=== PATIENT | female | born 1955 | race Hispanic/Latino ===

== ENCOUNTER 2017-01-05 12:14 | Emergency (ER) | payer MEDICAID, MEDICARE ==
[2017-01-05 12:15] VITALS: BMI 28.8
[2017-01-05 12:28] VITALS: BP 103/80; PULSE 81; RESP 18; TEMP 97.8; O2SAT 99
--- NOTE | 2017-01-05 13:42 | C.PDOC ---
History Of Present Illness 61 y/o female, with past medical history that includes HTN, chronic back pain, and depression, presents to ED with c/o increasing back pain over the last few days which radiates down the right leg. Patient reports she fell down 3 steps yesterday. She denies head injury, new weakness, new numbness, nausea, vomiting , dizziness. Patient reports frequent prior falls and regularly ambulates with a cane. She notes that she takes Percocet 10mg regularly, but states she has not taken any for this current pain because they make her nervous. She notes she applied ice to her back after the fall. Patient also mentions that she does have her regular pain medications at home. Denies any other physical complaints at this time. Time Seen by Provider: 01/05/17 13:10 Chief Complaint (Nursing): Dizziness/Lightheaded History Per: Patient History/Exam Limitations: no limitations Onset/Duration Of Symptoms: Days Current Symptoms Are (Timing): Still Present Quality Of Discomfort: "Pain" Previous Symptoms: Back Pain, Chronic Pain Associated Symptoms: denies: Incontinence, New Weakness, New Numbness Recent travel outside of the [place]: No Past Medical History Reviewed: Historical Data, Nursing Documentation, Vital Signs Vital Signs: Last Vital Signs Temp 97.8 F 01/05/17 12:24 Pulse 81 01/05/17 12:24 Resp 18 01/05/17 12:24 BP 103/80 01/05/17 12:24 Pulse Ox 99 01/05/17 13:48 - Medical History PMH: Anxiety, Arthritis, Asthma, Back Problems, CAD, COPD, Depression, HTN, Hypercholesterolemia, Hypothyroidism, Osteoporosis, TIA Surgical History: Carotid Endarterectomy - [facility] Procedures ANGIOPLASTY OF OTHER NON-CORONARY VESSEL(S) (02/21/14) CONTRAST AORTOGRAM (02/21/14) CONTRAST ARTERIOGRAM-LEG (02/21/14) FLUOROSCOPY OF L LOW EXTREM ART USING L OSM CONTRAST (01/11/15) FLUOROSCOPY OF R LOW EXTREM ART USING L OSM CONTRAST (01/11/15) INJECT/INFUSE NEC (12/24/13) INSEJ [id number] PERIPHERAL NON-CORONARY VES STENT(S) (02/21/14) INSERTION OF ONE VASCULAR STENT (02/21/14) INTRODUCTION OF SERUM/TOX/VACCINE INTO MUSCLE, PERC APPROACH (01/06/15) PROCEDURE ON SINGLE VESSEL (02/21/14) Family History: States: Unknown Family Hx - Social History Hx Tobacco Use: Yes Hx Alcohol Use: No Hx Substance Use: No - Immunization History Hx Tetanus Toxoid Vaccination: No Hx Influenza Vaccination: Yes Hx Pneumococcal Vaccination: No Review Of Systems Except As Marked, All Systems Reviewed And Found Negative. Constitutional: Negative for: Fever, Chills Cardiovascular: Negative for: Chest Pain Respiratory: Negative for: Cough, Shortness of Breath, Wheezing Gastrointestinal: Negative for: Nausea, Vomiting, Abdominal Pain Musculoskeletal: Positive for: Back Pain, Leg Pain. Negative for: Neck Pain Neurological: Negative for: Weakness, Numbness, Headache, Dizziness Physical Exam - Physical Exam Appears: Non-toxic, No Acute Distress Skin: Normal Color, Warm, Dry Head: Atraumatic, Normacephalic Neck: Normal ROM, No Midline Cervical Tenderness, No Paracervical Tenderness, Supple Chest: Symmetrical Cardiovascular: Rhythm Regular Respiratory: Normal Breath Sounds, No Rales, No Rhonchi, No Wheezing Gastrointestinal/Abdominal: Soft, No Tenderness, No Guarding, No Rebound Back: Normal Inspection, No Vertebral Tenderness, No Paraspinal Tenderness Extremity: Normal ROM, Capillary Refill (< 2 sec.) Neurological/Psych: Oriented x3, Normal Speech, Normal Cognition ED Course And Treatment O2 Sat by Pulse Oximetry: 99 (RA) Pulse Ox Interpretation: Normal Medical Decision Making Medical Decision Making: Plan: * Motrin * Tylenol * Reassess Progress Notes: On reassessment, patient is resting comfortably, and is in no acute distress. Patient instructed to take her regular pain medications as directed and to follow up with PMD within 1-2 days. Disposition Counseled Patient/Family Regarding: Diagnosis, Need For Followup - Disposition Disposition: HOME/ ROUTINE Disposition Time: 13:47 Condition: STABLE Instructions: Back Pain (ED) Forms: [facility] (Khmer), General Discharge Instructions - POA Present On Arrival: None - Clinical Impression Clinical Impression: Low back pain - Scribe Statement The provider has reviewed the documentation as recorded by the Scribcaity Thurston All medical record entries made by the Scribe were at my direction and personally dictated by me. I have reviewed the chart and agree that the record accurately reflects my personal performance of the history, physical exam, medical decision making, and the department course for this patient. I have also personally directed, reviewed, and agree with the discharge instructions and disposition.
== END 2017-01-05 14:02 | disposition home or self-care (01) ==
LOC: C.ER 12:14
DX: M54.5 Low back pain (principal)

== ENCOUNTER 2017-01-10 19:49 | Inpatient (IN) | payer MEDICARE ==
[2017-01-10 20:37] VITALS: BMI 27.4
[2017-01-10] MEDS ORDERED: Sodium Chloride 0.9% 1,000 ML IV ONE ×3 (20:37→23:15)
[2017-01-10 21:07] LABS: BASO # 0.1 K/uL (0.0-0.2); BASO % 0.4 % (0.0-2.0); EOS # 0.1 K/uL (0.0-0.7); HEMATOCRIT 32.4 % (34.0-47.0); LYMPH # 2.2 K/uL (1.0-4.3); LYMPH % 18.3 % (20.0-40.0); MEAN CELL VOLUME 90.1 fL (81.0-99.0); MEAN CORPUSCULAR HEMOGLOBIN 29.4 pg (27.0-31.0); MEAN CORPUSCULAR HGB CONC 32.6 g/dL (33.0-37.0); MEAN PLATELET VOLUME 10.4 fL (7.2-11.7); MONO # 1.9 K/uL (0.0-0.8); MONO % 15.9 % (0.0-10.0); RED CELL DISTRIBUTION WIDTH 15.8 % (11.5-14.5); WHITE BLOOD COUNT 11.9 K/uL (4.8-10.8)
[2017-01-10 21:25] LABS: CHLORIDE 101 mmol/L (98-107)
[2017-01-10 21:26] LABS: POTASSIUM 3.3 mmol/L (3.6-5.2); SODIUM 133 mmol/L (132-148)
[2017-01-10 21:28] LABS: BILIRUBIN,TOTAL 0.6 mg/dL (0.2-1.3); CARBON DIOXIDE 20 mmol/L (22-30); GFR AFRICAN-AMERICAN 15
[2017-01-10 21:29] LABS: ALB/GLOB RATIO 1.1 (1.0-2.1); ALKALINE PHOSPHATASE 54 U/L (38-126); ALT/SGPT 28 U/L (9-52); AST/SGOT 27 U/L (14-36); BLOOD UREA NITROGEN 32 mg/dL (7-17); CALCIUM 8.4 mg/dl (8.6-10.4); GLUCOSE,RANDOM 110 mg/dL (65-105); TOTAL PROTEIN 6.6 g/dL (6.3-8.3)
[2017-01-10 21:30] LABS: ALCOHOL SERUM < 10 mg/dl (0-10)
[2017-01-10] MEDS ORDERED: Piperacillin/Tazobact 3.375 gm 100 ML IV STA (22:12)
[2017-01-10] MEDS ORDERED: Vancomycin 1 GM 1 GM/250 ML BAG IV STA (22:12)
[2017-01-10] MEDS ORDERED: Vancomycin 1 GM 1 GM/250 ML BAG IVPB ONE (22:31)
[2017-01-10] MEDS ORDERED: Piperacillin/Tazobact 3.375 gm 100 ML IVPB ONE (22:31)
[2017-01-10 22:51] LABS: RBC URINE 4 /hpf (0-3); URINE BACTERIA FEW (<OCC); URINE BILIRUBIN NEGATIVE (NEGATIVE); URINE BLOOD NEGATIVE (NEGATIVE); URINE COLOR Amber (YELLOW); URINE GLUCOSE (UA) NORMAL (Normal); URINE KETONE NEGATIVE (NEGATIVE); URINE LEUKOCYTE ESTERASE 2+ Leu/uL (Negative); URINE PROTEIN 1+ mg/dL (NEGATIVE); WBC URINE 35 /hpf (0-5)
--- NOTE | 2017-01-10 23:21 | CP.CCUPN ---
CCU Subjective - Physician Review Events Since Last Encounter (Free Text): 01/10/17 The patient was Seen/interviewed and examined by me at the bedside, Medical records reviewed and Management issues were discussed and formulated with the house staff. 61 Y/O F with PMHx of HTN, HLD, COPD, CAD, Anxiety, Arthritis, Asthma, Back Problems, Depression, Hypothyroidism, Osteoporosis and TIA Who presented to the ER with not eating or drinking for 3 days SOB, in the ER she initially hypotension, responded to IV volume resuscitations Pt noted to be hallucinating in the ER, Urine tox positive for Benzo. Patient started on Broad spectrum antibiotics and getting admitted to ICU for severe sepsis sec to possible B/L pneumonia and acute kidney injury No fever/chills/CP, MCLEAN/cough No abd pain no n/v/d CCU Objective - Vital Signs / Intake & Output Vital Signs (Last 4 hours): Vital Signs Temp Pulse Resp BP Pulse Ox 01/10/17 22:45 90 16 106/80 98 01/10/17 20:30 97.9 F 98 H 18 62/38 L 91 L Intake and Output (Last 8hrs): Intake & Output 01/10/17 01/10/17 01/11/17 14:59 22:59 06:59 Weight 170 lb - Physical Exam Physical Exam Limitations: Positive for: Altered Mental Status, Clinical Condition Head: Positive for: Atraumatic, Normocephalic Pupils: Positive for: PERRL. Negative for: Sluggish, Non-Reactive Extroacular Muscles: Positive for: EOMI Conjunctiva: Positive for: Normal. Negative for: Injected, Icteric Ears: Positive for: Normal Mouth: Positive for: Dry Neck: Positive for: Normal Range of Motion, Trachea Midline. Negative for: Meningeal Signs, MIDLINE TENDERNESS, Paraspinal Tenderness, JVD, Lymphadenopathy , Bruit, Other Respiratory/Chest: Positive for: Good Air Exchange, Decreased Breath Sounds, Rhonchi. Negative for: Respiratory Distress, Accessory Muscle Use, Wheezes, Rales Cardiovascular: Positive for: Regular Rate and Rhythm, Normal S1, S2, Peripheal Pulses Present. Negative for: Murmurs Upper Extremity: Positive for: Normal Inspection. Negative for: Cyanosis, Edema Lower Extremity: Positive for: Normal Inspection. Negative for: Edema, CALF TENDERNESS Neurological: Positive for: GCS=15, CN II-XII Intact, Speech Normal, Motor Func Grossly Intact Skin: Positive for: Warm, Dry Psychiatric: Positive for: Alert, Oriented x 3 - Medications Active Medications: Active Medications Generic Name Dose Route Start Last Admin Trade Name Joan PRN Reason Stop Dose Admin Vancomycin HCl 1 gm in 250 mls @ 166.667 mls/hr 01/10/17 22:12 01/10/17 23:10 Vancomycin 1gm In Normal Saline Addvantage IV 01/10/17 23:41 166.667 mls/hr STAT STA Administration Sodium Chloride 1,000 mls @ 1,000 mls/hr 01/10/17 23:15 01/10/17 23:20 Sodium Chloride 0.9% IV 01/11/17 00:14 1,000 mls/hr .Q1H ONE Administration - Patient Studies Lab Studies: Lab Studies 01/10/17 01/10/17 01/10/17 Range/Units 21:02 21:02 21:02 WBC 11.9 H (4.8-10.8) K/uL RBC 3.60 L (3.80-5.20) Mil/uL Hgb 10.6 L (11.0-16.0) g/dL Hct 32.4 L (34.0-47.0) % MCV 90.1 D (81.0-99.0) fL MCH 29.4 (27.0-31.0) pg MCHC 32.6 L (33.0-37.0) g/dL RDW 15.8 H (11.5-14.5) % Plt Count 208 (130-400) K/uL MPV 10.4 (7.2-11.7) fL Neut % (Auto) 64.4 (50.0-75.0) % Lymph % (Auto) 18.3 L (20.0-40.0) % Millard % (Auto) 15.9 H (0.0-10.0) % Eos % (Auto) 1.0 (0.0-4.0) % Baso % (Auto) 0.4 (0.0-2.0) % Neut # 7.7 H (1.8-7.0) K/uL Lymph # 2.2 (1.0-4.3) K/uL Millard # 1.9 H (0.0-0.8) K/uL Eos # 0.1 (0.0-0.7) K/uL Baso # 0.1 (0.0-0.2) K/uL PT 10.9 (9.7-12.2) SECONDS INR 1.0 APTT 29 (21-34) SECONDS Sodium 133 (132-148) mmol/L Potassium 3.3 L (3.6-5.2) mmol/L Chloride 101 (98-107) mmol/L Carbon Dioxide 20 L (22-30) mmol/L Anion Gap 15 (10-20) BUN 32 H (7-17) mg/dL Creatinine 3.7 H (0.7-1.2) mg/dL Est GFR ( Amer) 15 Est GFR (Non-Af Amer) 12 Random Glucose 110 H (65-105) mg/dL Calcium 8.4 L (8.6-10.4) mg/dl Total Bilirubin 0.6 (0.2-1.3) mg/dL AST 27 (14-36) U/L ALT 28 (9-52) U/L Alkaline Phosphatase 54 (38-126) U/L Troponin I 0.0190 (0.00-0.120) ng/mL NT-Pro-B Natriuret Pep 292 (0-900) pg/mL Total Protein 6.6 (6.3-8.3) g/dL Albumin 3.4 L (3.5-5.0) g/dL Globulin 3.2 (2.2-3.9) gm/dL Albumin/Globulin Ratio 1.1 (1.0-2.1) Urine Color (YELLOW) Urine Clarity (Clear) Urine pH (5.0-8.0) Ur Specific York (1.003-1.030) Urine Protein (NEGATIVE) mg/dL Urine Glucose (UA) (Normal) mg/dL Urine Ketones (NEGATIVE) mg/dL Urine Blood (NEGATIVE) Urine Nitrate (NEGATIVE) Urine Bilirubin (NEGATIVE) Urine Urobilinogen (0.2-1.0) mg/dL Ur Leukocyte Esterase (Negative) Paz/uL Urine WBC (Auto) (0-5) /hpf Urine RBC (Auto) (0-3) /hpf Ur Squamous Epith Cells (0-5) /hpf Urine Bacteria (<OCC) Urine Opiates Screen (NEGATIVE) Urine Methadone Screen (NEGATIVE) Ur Barbiturates Screen (NEGATIVE) Ur Phencyclidine Scrn (NEGATIVE) Ur Amphetamines Screen (NEGATIVE) U Benzodiazepines Scrn (NEGATIVE) U Oth Cocaine Metabols (NEGATIVE) U Cannabinoids Screen (NEGATIVE) Alcohol, Quantitative < 10 (0-10) mg/dl 01/10/17 01/10/17 Range/Units 10:08 10:08 WBC (4.8-10.8) K/uL RBC (3.80-5.20) Mil/uL Hgb (11.0-16.0) g/dL Hct (34.0-47.0) % MCV (81.0-99.0) fL MCH (27.0-31.0) pg MCHC (33.0-37.0) g/dL RDW (11.5-14.5) % Plt Count (130-400) K/uL MPV (7.2-11.7) fL Neut % (Auto) (50.0-75.0) % Lymph % (Auto) (20.0-40.0) % Millard % (Auto) (0.0-10.0) % Eos % (Auto) (0.0-4.0) % Baso % (Auto) (0.0-2.0) % Neut # (1.8-7.0) K/uL Lymph # (1.0-4.3) K/uL Millard # (0.0-0.8) K/uL Eos # (0.0-0.7) K/uL Baso # (0.0-0.2) K/uL PT (9.7-12.2) SECONDS INR APTT (21-34) SECONDS Sodium (132-148) mmol/L Potassium (3.6-5.2) mmol/L Chloride (98-107) mmol/L Carbon Dioxide (22-30) mmol/L Anion Gap (10-20) BUN (7-17) mg/dL Creatinine (0.7-1.2) mg/dL Est GFR ( Amer) Est GFR (Non-Af Amer) Random Glucose (65-105) mg/dL Calcium (8.6-10.4) mg/dl Total Bilirubin (0.2-1.3) mg/dL AST (14-36) U/L ALT (9-52) U/L Alkaline Phosphatase (38-126) U/L Troponin I (0.00-0.120) ng/mL NT-Pro-B Natriuret Pep (0-900) pg/mL Total Protein (6.3-8.3) g/dL Albumin (3.5-5.0) g/dL Globulin (2.2-3.9) gm/dL Albumin/Globulin Ratio (1.0-2.1) Urine Color Anu (YELLOW) Urine Clarity Hazy (Clear) Urine pH 5.0 (5.0-8.0) Ur Specific York 1.017 (1.003-1.030) Urine Protein 1+ H (NEGATIVE) mg/dL Urine Glucose (UA) Normal (Normal) mg/dL Urine Ketones Negative (NEGATIVE) mg/dL Urine Blood Negative (NEGATIVE) Urine Nitrate Negative (NEGATIVE) Urine Bilirubin Negative (NEGATIVE) Urine Urobilinogen 2.0 H (0.2-1.0) mg/dL Ur Leukocyte Esterase 2+ H (Negative) Paz/uL Urine WBC (Auto) 35 H (0-5) /hpf Urine RBC (Auto) 4 H (0-3) /hpf Ur Squamous Epith Cells 2 (0-5) /hpf Urine Bacteria Few H (<OCC) Urine Opiates Screen Negative (NEGATIVE) Urine Methadone Screen Negative (NEGATIVE) Ur Barbiturates Screen Negative (NEGATIVE) Ur Phencyclidine Scrn Negative (NEGATIVE) Ur Amphetamines Screen Negative (NEGATIVE) U Benzodiazepines Scrn Positive (NEGATIVE) U Oth Cocaine Metabols Negative (NEGATIVE) U Cannabinoids Screen Negative (NEGATIVE) Alcohol, Quantitative (0-10) mg/dl Laboratory Results - last 24 hr 01/10/17 01/10/17 01/10/17 10:08 10:08 21:02 WBC RBC Hgb Hct MCV MCH MCHC RDW Plt Count MPV Neut % (Auto) Lymph % (Auto) Millard % (Auto) Eos % (Auto) Baso % (Auto) Neut # Lymph # Millard # Eos # Baso # PT INR APTT Sodium 133 Potassium 3.3 L Chloride 101 Carbon Dioxide 20 L Anion Gap 15 BUN 32 H Creatinine 3.7 H Est GFR ( Amer) 15 Est GFR (Non-Af Amer) 12 Random Glucose 110 H Calcium 8.4 L Total Bilirubin 0.6 AST 27 ALT 28 Alkaline Phosphatase 54 Troponin I 0.0190 NT-Pro-B Natriuret Pep 292 Total Protein 6.6 Albumin 3.4 L Globulin 3.2 Albumin/Globulin Ratio 1.1 Urine Color Anu Urine Clarity Hazy Urine pH 5.0 Ur Specific York 1.017 Urine Protein 1+ H Urine Glucose (UA) Normal Urine Ketones Negative Urine Blood Negative Urine Nitrate Negative Urine Bilirubin Negative Urine Urobilinogen 2.0 H Ur Leukocyte Esterase 2+ H Urine WBC (Auto) 35 H Urine RBC (Auto) 4 H Ur Squamous Epith Cells 2 Urine Bacteria Few H Urine Opiates Screen Negative Urine Methadone Screen Negative Ur Barbiturates Screen Negative Ur Phencyclidine Scrn Negative Ur Amphetamines Screen Negative U Benzodiazepines Scrn Positive U Oth Cocaine Metabols Negative U Cannabinoids Screen Negative Alcohol, Quantitative < 10 01/10/17 01/10/17 21:02 21:02 WBC 11.9 H RBC 3.60 L Hgb 10.6 L Hct 32.4 L MCV 90.1 D MCH 29.4 MCHC 32.6 L RDW 15.8 H Plt Count 208 MPV 10.4 Neut % (Auto) 64.4 Lymph % (Auto) 18.3 L Millard % (Auto) 15.9 H Eos % (Auto) 1.0 Baso % (Auto) 0.4 Neut # 7.7 H Lymph # 2.2 Millard # 1.9 H Eos # 0.1 Baso # 0.1 PT 10.9 INR 1.0 APTT 29 Sodium Potassium Chloride Carbon Dioxide Anion Gap BUN Creatinine Est GFR ( Amer) Est GFR (Non-Af Amer) Random Glucose Calcium Total Bilirubin AST ALT Alkaline Phosphatase Troponin I NT-Pro-B Natriuret Pep Total Protein Albumin Globulin Albumin/Globulin Ratio Urine Color Urine Clarity Urine pH Ur Specific York Urine Protein Urine Glucose (UA) Urine Ketones Urine Blood Urine Nitrate Urine Bilirubin Urine Urobilinogen Ur Leukocyte Esterase Urine WBC (Auto) Urine RBC (Auto) Ur Squamous Epith Cells Urine Bacteria Urine Opiates Screen Urine Methadone Screen Ur Barbiturates Screen Ur Phencyclidine Scrn Ur Amphetamines Screen U Benzodiazepines Scrn U Oth Cocaine Metabols U Cannabinoids Screen Alcohol, Quantitative EKG/Cardiology Studies: Cardiology / EKG Studies 01/10/17 20:38 ELECTROCARDIOGRAM Stat Comment: Mode Of Transportation: BED Reason For Exam: SOB Review of Systems - Review of Systems Systems not reviewed;Unavailable: Uncooperative Critical Care Progress Note - Extremities/Vascular Does the Patient have a Central Venous Catheter?: No Does the Patient need a Central Venous Catheter?: No Does the Patient have a Mathis Catheter?: No Does the Patient need a Mathis Catheter?: No Assessment/Plan (1) Severe sepsis Current Visit: Yes Status: Acute (2) CAP (community acquired pneumonia) Current Visit: Yes Status: Acute (3) Acute renal insufficiency Current Visit: Yes Status: Acute (4) Dehydration Current Visit: Yes Status: Acute (5) Hallucinations Current Visit: Yes Status: Acute (6) UTI (urinary tract infection) Current Visit: Yes Status: Acute - Assessment and Plan (Free Text) Assessment: Admit to ICU for hemodynamic monitoring Monitor Respiratory status IV Hydration with 0.9% NS @ 100 ml/hr; continue to reassess fluid status regularly Broad spectrum Antibiotics Monitor fever curve, Tylenol PRN fevers Blood, sputum, UA, urine culture Check urine legionella and pneumococcus/strep antigen Monitor renaL function Monitor urine output Strict Is/Os Restart outpatient meds BD nebs Q 6H PRN Tight glycemic control, RISS with Coverage Aggressive pulmonary toilet GI/DVT PPX with SCDs, SQ Heparin
--- NOTE | 2017-01-10 23:39 | C.PDOC ---
History Of Present Illness 61 y/o female presents to the ED c/o not eating or drinking for 3 days. Patient has good compliance with his meds. Reports hallucinating people in his kitchen. Notes that he feels weak and tired. Denies fever, chills, abdominal pain, or any other complaints. Time Seen by Provider: 01/10/17 20:25 Chief Complaint (Nursing): Altered Mental Status History Per: Patient History/Exam Limitations: no limitations Onset/Duration Of Symptoms: Days (3) Current Symptoms Are (Timing): Still Present Severity: Mild Additional History Per: Patient Past Medical History Reviewed: Historical Data, Nursing Documentation, Vital Signs Vital Signs: Last Vital Signs Temp 98.1 F 01/11/17 02:00 Pulse 89 01/11/17 02:00 Resp 16 01/11/17 02:00 BP 104/69 01/11/17 02:00 Pulse Ox 98 01/11/17 04:46 - Medical History PMH: Anxiety, Arthritis, Asthma, Back Problems, CAD, COPD, Depression, HTN, Hypercholesterolemia, Hypothyroidism, Osteoporosis, TIA Surgical History: Carotid Endarterectomy, Coronary Stent - [facility] Procedures ANGIOPLASTY OF OTHER NON-CORONARY VESSEL(S) (02/21/14) CONTRAST AORTOGRAM (02/21/14) CONTRAST ARTERIOGRAM-LEG (02/21/14) FLUOROSCOPY OF L LOW EXTREM ART USING L OSM CONTRAST (01/11/15) FLUOROSCOPY OF R LOW EXTREM ART USING L OSM CONTRAST (01/11/15) INJECT/INFUSE NEC (12/24/13) INSEJ [id number] PERIPHERAL NON-CORONARY VES STENT(S) (02/21/14) INSERTION OF ONE VASCULAR STENT (02/21/14) INTRODUCTION OF SERUM/TOX/VACCINE INTO MUSCLE, PERC APPROACH (01/06/15) PROCEDURE ON SINGLE VESSEL (02/21/14) Family History: States: Unknown Family Hx - Social History Hx Tobacco Use: Yes Hx Alcohol Use: No Hx Substance Use: No - Immunization History Hx Tetanus Toxoid Vaccination: No Hx Influenza Vaccination: Yes Hx Pneumococcal Vaccination: No Review Of Systems Except As Marked, All Systems Reviewed And Found Negative. Constitutional: Negative for: Fever, Chills Gastrointestinal: Negative for: Abdominal Pain Psych: Positive for: Psychosis (Hallucination) Physical Exam - Physical Exam Appears: Non-toxic, No Acute Distress Skin: Warm, Dry Head: Atraumatic, Normacephalic Eye(s): bilateral: Normal Inspection Cardiovascular: Rhythm Regular Respiratory: Normal Breath Sounds, No Rales, No Rhonchi, No Wheezing Neurological/Psych: Oriented x3 (Awake and alert) ED Course And Treatment - Laboratory Results Result Diagrams: 01/10/17 21:02 01/10/17 21:02 Lab Interpretation: Abnormal (UA, tox + benzo, ETOH neg) ECG: Interpreted By Me ECG Rhythm: Sinus Rhythm Rate From EC O2 Sat by Pulse Oximetry: 98 (RA) Pulse Ox Interpretation: Normal - Radiology CXR: Interpreted by Me CXR Interpretation: Yes: Infiltrates (+ RML, LLL) Progress Note: 3 L NS bolus, Vanco, Zosyn, pt remains calm cooperative, SBP < 100 Reevaluation Time: 23:37 Reassessment Condition: Improved - Physician Consult Information Outcome Of Conversation: 2330: d/w Dr. Weaver- ICU, ok to eval. 0000: d/w Dr. Broussard- Medicine Entry Level Administrative Assistant- ok to adm to ICU Critical Care Time - Critical Care Note Total Time (in mins): 90 Documented critical care: time excludes all time spent performing seperately billable procedures. Medical Decision Making Medical Decision Making: ? overuse of benzo's, BP meds and poor PO intake x 2-3 days. Acute renal insuff bun/creat 32/3.7 significantly changed from prior creat 0.6 back in 09/18 Responding nicely to IVF's, but inappropriate for Tele Floors ? b/l lung infiltrates, UA 35 wbc's, Vanco/Zosyn started empirically. ICU for close monitoring considering pt hallucinating (seeing ppl in her kitchen) and + benzo's, pt may be suffering etoh/benzo w/d, consider prophylaxis. Disposition Doctor Will See Patient In The: Hospital Counseled Patient/Family Regarding: Studies Performed, Diagnosis - Disposition Disposition: HOSPITALIZED Disposition Time: 23:42 Condition: FAIR - Clinical Impression Clinical Impression: UTI (urinary tract infection), Pneumonia, Dehydration, Acute renal insufficiency, Hallucinations - Scribe Statement The provider has reviewed the documentation as recorded by the Scribe Davina paz All medical record entries made by the Scribe were at my direction and personally dictated by me. I have reviewed the chart and agree that the record accurately reflects my personal performance of the history, physical exam, medical decision making, and the department course for this patient. I have also personally directed, reviewed, and agree with the discharge instructions and disposition.
[2017-01-11] MEDS ORDERED: Azithromycin 500mg/250ML NS 500 MG/250 ML BAG IVPB ONE (01:03)
[2017-01-11] MEDS: Sodium Chloride 0.9% 1,000 ML IV SCH ×4 (01:53→18:22)
[2017-01-11] MEDS: Azithromycin 500 MG in Sodium Chloride 0.9% 250 ML IVPB SCH (01:58)
[2017-01-11] MEDS: Piperacillin/Tazobact 3.375 GM in Sodium Chloride 100 ML IVPB SCH ×2 (06:30→14:08)
[2017-01-11 07:01] LABS: BASO % 0.4 % (0.0-2.0); EOS # 0.1 K/uL (0.0-0.7); EOS % 1.4 % (0.0-4.0); HEMATOCRIT 30.9 % (34.0-47.0); LYMPH % 23.6 % (20.0-40.0); MEAN CELL VOLUME 90.3 fL (81.0-99.0); MEAN CORPUSCULAR HEMOGLOBIN 30.1 pg (27.0-31.0); MEAN CORPUSCULAR HGB CONC 33.3 g/dL (33.0-37.0); MEAN PLATELET VOLUME 9.9 fL (7.2-11.7); MONO # 1.3 K/uL (0.0-0.8); MONO % 14.6 % (0.0-10.0); RED CELL DISTRIBUTION WIDTH 16.1 % (11.5-14.5); WHITE BLOOD COUNT 8.6 K/uL (4.8-10.8)
[2017-01-11 07:09] LABS: POTASSIUM 3.5 mmol/L (3.6-5.2)
[2017-01-11 07:11] LABS: BILIRUBIN,TOTAL 0.4 mg/dL (0.2-1.3)
[2017-01-11 07:12] LABS: ALB/GLOB RATIO 0.9 (1.0-2.1); CALCIUM 7.6 mg/dl (8.6-10.4); PHOSPHOROUS 3.1 mg/dL (2.5-4.5); TOTAL PROTEIN 5.8 g/dL (6.3-8.3)
[2017-01-11 07:13] LABS: MAGNESIUM 2.2 mg/dL (1.6-2.3)
--- NOTE | 2017-01-11 09:13 | RAD ---
PROCEDURE: CHEST RADIOGRAPH, 1 VIEW HISTORY: SOB COMPARISON: Comparison is made to 09/28/2015 FINDINGS: LUNGS: Heterogeneous infiltrate or density seen at the left lower lung. Heterogeneous density also seen at the right lower lung PLEURA: Blunting of the right costophrenic angle is noted. CARDIOVASCULAR: Normal. OSSEOUS STRUCTURES: No significant abnormalities. VISUALIZED UPPER ABDOMEN: Normal. OTHER FINDINGS: None. IMPRESSION: Heterogeneous densities or infiltrates at the left lower lobe and right lower lobe of uncertain etiology. Blunting of the right costophrenic angle could be due to small pleural effusion.
[2017-01-11] MEDS ORDERED: Potassium Chloride 20 mEq ER Tab PO SCH (10:15)
[2017-01-11] MEDS: Pantoprazole 20 mg EC Tab PO SCH (10:53)
--- NOTE | 2017-01-11 13:36 | CP.PCM.HP ---
History of Present Illness - History of Present Illness History of Present Illness: COMPREHENSIVE HISTORY & PHYSICAL EXAM HPI ADMITTED WITH NON SPECIFIC COMPLAINTS APPERNETLY PT HAD LOST APPETITE FOR FEW DAYS AND HAD AN AEPISODE OF HALLUCINATION PRIOR TO ADMISSION PT WAS HYPOTENSIVE WITH GREG PNEUMONIA PAST HIST. CAD/HTN/LEFT CAROTID STENOSIS LEFT ICA STENT IN [facility] /CVA / SEPSIS /R. GROIN HEMATOMA PERSONAL HIST: Smoking. N Alcohol. N Allergy N Travel_- . FAMILY HIST : ROS : Constitutional: Negative FEVERS Eyes: Negative for redness, swelling, itching, discharge, vision changes, blurry vision, double vision, glaucoma, cataracts, Ears: Negative for hearing loss, ringing, , tinnitus, vertigo Nose: Negative for rhinorrhea, stuffiness, sniffing, itching, postnasal drip, discoloration, nasal congestion and epistaxis. Throat: Negative for throat clearing, sore throat, hoarseness, difficulty swallowing and difficulty speaking. Respiratory: Negative for cough, , sputum production, chest tightness, wheezing, pleuritic chest pain ,daytime somnolence, chronic cough, hemoptysis, snoring at night, Cardiovascular: Negative for chest pain, palpitations, orthopnea, PND, Edema of legs, leg cramps, angina, claudication, , irregular heartbeat, Neurology: Negative for irritability, muscle weakness, numbness and tingling, seizures, tremors, migraines, slurred speech, syncope, memory loss, mood changes , recurrent headaches Gastrointestinal: Negative for difficulty swallowing, diarrhea, constipation, black stools, rectal bleeding, nausea, flatulence, reflux, poor appetite, changes in bowel habits, abdominal pain Genitourinary: Negative for frequent urination, hematuria, discharge, incontinence, urinary retention, frequent UTI, Psychiatric: Negative for depression, anxiety/panic, suicidal tendencies, Musculoskeletal: Negative for swollen joints, back pain, , neck pain, morning stiffness of joints, . Skin: Negative for rash, ulcers, itching, dry skin and pigmented lesions. P/E: Constitutional: Appears stated age and in no apparent distress. Head: Normocephalic. Ears: External ear canals patent without inflammation. Tympanic membranes intact with normal light reflex and landmark. Eyes: Pupils are central, bilaterally equal, symmetrical and reacts to light with normal movements and no icterus or pallor. Nose: External nares are patent. Mucosa is pink Mouth-Throat: Good general appearance and condition. No post-pharyngeal/oropharyngeal erythema and tonsillar hypertrophy. Good dental hygiene. Neck-Lymphatic: Neck is supple with normal ROM, no thyromegaly, lymph nodes or masses. JVD is normal with no carotid bruit. Lungs: Clear to percussion and auscultation with bilateral normal air entry. Cardiovascular: S1 and S2 are normal with no murmurs, gallops and rub. GI Exam: No hepatomegaly. Abdomen is soft and non-tender. No Organomegaly , masses or hernias are evident and bowel sounds are normal and active. Neurology: Higher function and all cranial nerves intact, with no gross motor or sensory deficit. Superficial and deep reflexes are normal with downwards planters. No cerebellar deficit with normal gait. Musculoskeletal: No tender spots with normal curvature of the spine with no swelling or restricted ROM of the small and large joints. Extremities: Homans sign absent. Intact pulses with no pitting edema, calf tenderness or skin color changes. Skin: No rash, eruptions or abnormal skin pigmentation LAB/RADIOLOGY: ASSESMENT : GREG PNEUMONIA CAD CVA PLAN: SEE ORDERS Present on Admission - Present on Admission Any Indicators Present on Admission: No Past Patient History - Infectious Disease Hx of Infectious Diseases: None - Past Medical History & Family History Past Medical History?: Yes - Past Social History Smoking Status: Light Smoker < 10 Cigarettes Daily - CARDIAC Hx Hypercholesterolemia: Yes Hx Hypertension: Yes - PULMONARY Hx Asthma: Yes Hx Chronic Obstructive Pulmonary Disease (COPD): Yes - NEUROLOGICAL Hx Transient Ischemic Attacks (TIA): Yes - HEENT Hx HEENT Problems: No - ENDOCRINE/METABOLIC Hx Hypothyroidism: Yes - HEMATOLOGICAL/ONCOLOGICAL Hx Blood Disorders: No - INTEGUMENTARY Hx Dermatological Problems: No - MUSCULOSKELETAL/RHEUMATOLOGICAL Hx Arthritis: Yes Hx Osteoporosis: Yes - GASTROINTESTINAL Hx Gastrointestinal Disorders: No - GENITOURINARY/GYNECOLOGICAL Hx Genitourinary Disorders: No - PSYCHIATRIC Hx Anxiety: Yes Hx Depression: Yes Hx Substance Use: No - SURGICAL HISTORY Hx Carotid Endarterectomy: Yes Hx Coronary Stent: Yes - ANESTHESIA Hx Anesthesia: Yes Hx Anesthesia Reactions: No Hx Malignant Hyperthermia: No Meds Allergies/Adverse Reactions: Allergies Allergy/AdvReac Type Severity Reaction Status Date / Time budesonide [From Symbicort] Allergy SHORTNESS Verified 01/05/17 12:28 OF BREATH formoterol fumarate Allergy SHORTNESS Verified 01/10/17 20:55 [From Symbicort] OF BREATH Results - Vital Signs Recent Vital Signs: Last Vital Signs Temp 97.8 F 01/11/17 08:00 Pulse 80 01/11/17 11:40 Resp 11 L 01/11/17 11:40 BP 115/69 01/11/17 11:34 Pulse Ox 98 01/11/17 11:40 - Labs Result Diagrams: 01/12/17 05:51 01/12/17 05:51 Labs: Laboratory Results - last 24 hr 01/10/17 01/10/17 01/10/17 10:08 10:08 21:02 WBC RBC Hgb Hct MCV MCH MCHC RDW Plt Count MPV Neut % (Auto) Lymph % (Auto) Elbert % (Auto) Eos % (Auto) Baso % (Auto) Neut # Lymph # Elbert # Eos # Baso # PT INR APTT Sodium 133 Potassium 3.3 L Chloride 101 Carbon Dioxide 20 L Anion Gap 15 BUN 32 H Creatinine 3.7 H Est GFR ( Amer) 15 Est GFR (Non-Af Amer) 12 Random Glucose 110 H Calcium 8.4 L Phosphorus Magnesium Total Bilirubin 0.6 AST 27 ALT 28 Alkaline Phosphatase 54 Troponin I 0.0190 NT-Pro-B Natriuret Pep 292 Total Protein 6.6 Albumin 3.4 L Globulin 3.2 Albumin/Globulin Ratio 1.1 Urine Color Anu Urine Clarity Hazy Urine pH 5.0 Ur Specific [place] 1.017 Urine Protein 1+ H Urine Glucose (UA) Normal Urine Ketones Negative Urine Blood Negative Urine Nitrate Negative Urine Bilirubin Negative Urine Urobilinogen 2.0 H Ur Leukocyte Esterase 2+ H Urine WBC (Auto) 35 H Urine RBC (Auto) 4 H Ur Squamous Epith Cells 2 Urine Bacteria Few H Urine Opiates Screen Negative Urine Methadone Screen Negative Ur Barbiturates Screen Negative Ur Phencyclidine Scrn Negative Ur Amphetamines Screen Negative U Benzodiazepines Scrn Positive U Oth Cocaine Metabols Negative U Cannabinoids Screen Negative Alcohol, Quantitative < 10 01/10/17 01/10/17 01/11/17 21:02 21:02 06:57 WBC 11.9 H 8.6 RBC 3.60 L 3.42 L Hgb 10.6 L 10.3 L Hct 32.4 L 30.9 L MCV 90.1 D 90.3 MCH 29.4 30.1 MCHC 32.6 L 33.3 RDW 15.8 H 16.1 H Plt Count 208 185 MPV 10.4 9.9 Neut % (Auto) 64.4 60.0 Lymph % (Auto) 18.3 L 23.6 Elbert % (Auto) 15.9 H 14.6 H Eos % (Auto) 1.0 1.4 Baso % (Auto) 0.4 0.4 Neut # 7.7 H 5.2 Lymph # 2.2 2.0 Elbert # 1.9 H 1.3 H Eos # 0.1 0.1 Baso # 0.1 0.0 PT 10.9 INR 1.0 APTT 29 Sodium Potassium Chloride Carbon Dioxide Anion Gap BUN Creatinine Est GFR ( Amer) Est GFR (Non-Af Amer) Random Glucose Calcium Phosphorus Magnesium Total Bilirubin AST ALT Alkaline Phosphatase Troponin I NT-Pro-B Natriuret Pep Total Protein Albumin Globulin Albumin/Globulin Ratio Urine Color Urine Clarity Urine pH Ur Specific [place] Urine Protein Urine Glucose (UA) Urine Ketones Urine Blood Urine Nitrate Urine Bilirubin Urine Urobilinogen Ur Leukocyte Esterase Urine WBC (Auto) Urine RBC (Auto) Ur Squamous Epith Cells Urine Bacteria Urine Opiates Screen Urine Methadone Screen Ur Barbiturates Screen Ur Phencyclidine Scrn Ur Amphetamines Screen U Benzodiazepines Scrn U Oth Cocaine Metabols U Cannabinoids Screen Alcohol, Quantitative 01/11/17 06:57 WBC RBC Hgb Hct MCV MCH MCHC RDW Plt Count MPV Neut % (Auto) Lymph % (Auto) Elbert % (Auto) Eos % (Auto) Baso % (Auto) Neut # Lymph # Elbert # Eos # Baso # PT INR APTT Sodium 139 Potassium 3.5 L Chloride 111 H Carbon Dioxide 18 L Anion Gap 14 BUN 24 H Creatinine 1.8 H Est GFR ( Amer) 35 Est GFR (Non-Af Amer) 29 Random Glucose 103 Calcium 7.6 L Phosphorus 3.1 Magnesium 2.2 Total Bilirubin 0.4 AST 17 ALT 25 Alkaline Phosphatase 47 Troponin I NT-Pro-B Natriuret Pep Total Protein 5.8 L Albumin 2.8 L Globulin 3.0 Albumin/Globulin Ratio 0.9 L Urine Color Urine Clarity Urine pH Ur Specific [place] Urine Protein Urine Glucose (UA) Urine Ketones Urine Blood Urine Nitrate Urine Bilirubin Urine Urobilinogen Ur Leukocyte Esterase Urine WBC (Auto) Urine RBC (Auto) Ur Squamous Epith Cells Urine Bacteria Urine Opiates Screen Urine Methadone Screen Ur Barbiturates Screen Ur Phencyclidine Scrn Ur Amphetamines Screen U Benzodiazepines Scrn U Oth Cocaine Metabols U Cannabinoids Screen Alcohol, Quantitative
--- NOTE | 2017-01-11 15:47 | CP.CCUPN ---
CCU Subjective - Physician Review Subjective (Free Text): Patient was seen and examined at bedside. Patient reports that she is doing well. Patient denies chest pain, palpitations, SOB, fever, chills, abdominal pain, nausea and vomiting. CCU Objective - Vital Signs / Intake & Output Vital Signs (Last 4 hours): Vital Signs BP Pulse Ox 01/11/17 14:24 125/67 98 Intake and Output (Last 8hrs): Intake & Output 01/11/17 01/11/17 01/11/17 06:59 14:59 22:59 Intake Total 625 945 Output Total 950 Balance 625 -5 Weight 168 lb 9 oz Intake: Intake, IV Amount 625 625 Right Hand 625 625 Oral 320 Output: Urine 950 Urine, Voided 950 - Physical Exam Head: Positive for: Atraumatic, Normocephalic Pupils: Negative for: Sluggish, Non-Reactive Extroacular Muscles: Positive for: EOMI Conjunctiva: Positive for: Normal. Negative for: Injected, Icteric Ears: Positive for: Normal Mouth: Positive for: Dry Neck: Positive for: Trachea Midline. Negative for: Meningeal Signs, MIDLINE TENDERNESS, Paraspinal Tenderness, JVD, Lymphadenopathy, Bruit, Other Respiratory/Chest: Positive for: Clear to Auscultation, Good Air Exchange. Negative for: Respiratory Distress, Accessory Muscle Use, Wheezes, Rales Cardiovascular: Positive for: Regular Rate and Rhythm, Normal S1, S2, Peripheal Pulses Present. Negative for: Murmurs Abdomen: Positive for: Normal Bowel Sounds. Negative for: Tenderness, Distention Upper Extremity: Positive for: Normal Inspection. Negative for: Cyanosis, Edema Lower Extremity: Positive for: Normal Inspection. Negative for: Edema, CALF TENDERNESS Neurological: Positive for: GCS=15, CN II-XII Intact, Speech Normal Skin: Positive for: Warm, Dry Psychiatric: Positive for: Alert, Oriented x 3 - Medications Active Medications: Active Medications Generic Name Dose Route Start Last Admin Trade Name Freq PRN Reason Stop Dose Admin Acetaminophen 650 mg 01/11/17 10:44 01/11/17 10:52 Tylenol 325mg Tab PO 650 mg Q6 PRN Administration Pain, moderate (4-7) Heparin Sodium (Porcine) 5,000 units 01/11/17 00:30 01/11/17 14:07 Heparin SC 5,000 units Q8 ANKUR Administration Azithromycin 500 mg/ Sodium 250 mls @ 250 mls/hr 01/11/17 00:30 01/11/17 01: 58 Chloride IVPB 250 mls/hr Q24H ANKUR Administration Vancomycin HCl 1 gm/ Sodium 250 mls @ 166.7 mls/hr 01/12/17 00:30 Chloride IVPB Q24H ANKUR Sodium Chloride 1,000 mls @ 125 mls/hr 01/11/17 00:30 01/11/17 10:49 Sodium Chloride 0.9% IV 125 mls/hr .Q8H ANKUR Administration Piperacillin Sod/Tazobactam Sod 2.25 gm in 50 mls @ 100 mls/hr 01/11/17 22:00 Zosyn 2.25 Gm Iv Premix IVPB Q8H ANKUR Pantoprazole Sodium 20 mg 01/11/17 10:15 01/11/17 10:53 Protonix Ec Tab PO 20 mg DAILY ANKUR Administration Potassium Chloride 40 meq 01/11/17 10:15 01/11/17 10:50 K-Dur 20 Meq Er Tab PO 40 meq DAILY NAKUR Administration - Patient Studies Lab Studies: Lab Studies 01/11/17 01/11/17 01/10/17 Range/Units 06:57 06:57 21:02 WBC 8.6 (4.8-10.8) K/uL RBC 3.42 L (3.80-5.20) Mil/uL Hgb 10.3 L (11.0-16.0) g/dL Hct 30.9 L (34.0-47.0) % MCV 90.3 (81.0-99.0) fL MCH 30.1 (27.0-31.0) pg MCHC 33.3 (33.0-37.0) g/dL RDW 16.1 H (11.5-14.5) % Plt Count 185 (130-400) K/uL MPV 9.9 (7.2-11.7) fL Neut % (Auto) 60.0 (50.0-75.0) % Lymph % (Auto) 23.6 (20.0-40.0) % Chase % (Auto) 14.6 H (0.0-10.0) % Eos % (Auto) 1.4 (0.0-4.0) % Baso % (Auto) 0.4 (0.0-2.0) % Neut # 5.2 (1.8-7.0) K/uL Lymph # 2.0 (1.0-4.3) K/uL Chase # 1.3 H (0.0-0.8) K/uL Eos # 0.1 (0.0-0.7) K/uL Baso # 0.0 (0.0-0.2) K/uL PT 10.9 (9.7-12.2) SECONDS INR 1.0 APTT 29 (21-34) SECONDS Sodium 139 (132-148) mmol/L Potassium 3.5 L (3.6-5.2) mmol/L Chloride 111 H (98-107) mmol/L Carbon Dioxide 18 L (22-30) mmol/L Anion Gap 14 (10-20) BUN 24 H (7-17) mg/dL Creatinine 1.8 H (0.7-1.2) mg/dL Est GFR ( Amer) 35 Est GFR (Non-Af Amer) 29 Random Glucose 103 (65-105) mg/dL Calcium 7.6 L (8.6-10.4) mg/dl Phosphorus 3.1 (2.5-4.5) mg/dL Magnesium 2.2 (1.6-2.3) mg/dL Total Bilirubin 0.4 (0.2-1.3) mg/dL AST 17 (14-36) U/L ALT 25 (9-52) U/L Alkaline Phosphatase 47 (38-126) U/L Troponin I (0.00-0.120) ng/mL NT-Pro-B Natriuret Pep (0-900) pg/mL Total Protein 5.8 L (6.3-8.3) g/dL Albumin 2.8 L (3.5-5.0) g/dL Globulin 3.0 (2.2-3.9) gm/dL Albumin/Globulin Ratio 0.9 L (1.0-2.1) Urine Color (YELLOW) Urine Clarity (Clear) Urine pH (5.0-8.0) Ur Specific [place] (1.003-1.030) Urine Protein (NEGATIVE) mg/dL Urine Glucose (UA) (Normal) mg/dL Urine Ketones (NEGATIVE) mg/dL Urine Blood (NEGATIVE) Urine Nitrate (NEGATIVE) Urine Bilirubin (NEGATIVE) Urine Urobilinogen (0.2-1.0) mg/dL Ur Leukocyte Esterase (Negative) Paz/uL Urine WBC (Auto) (0-5) /hpf Urine RBC (Auto) (0-3) /hpf Ur Squamous Epith Cells (0-5) /hpf Urine Bacteria (<OCC) Urine Opiates Screen (NEGATIVE) Urine Methadone Screen (NEGATIVE) Ur Barbiturates Screen (NEGATIVE) Ur Phencyclidine Scrn (NEGATIVE) Ur Amphetamines Screen (NEGATIVE) U Benzodiazepines Scrn (NEGATIVE) U Oth Cocaine Metabols (NEGATIVE) U Cannabinoids Screen (NEGATIVE) Alcohol, Quantitative (0-10) mg/dl 01/10/17 01/10/17 01/10/17 Range/Units 21:02 21:02 10:08 WBC 11.9 H (4.8-10.8) K/uL RBC 3.60 L (3.80-5.20) Mil/uL Hgb 10.6 L (11.0-16.0) g/dL Hct 32.4 L (34.0-47.0) % MCV 90.1 D (81.0-99.0) fL MCH 29.4 (27.0-31.0) pg MCHC 32.6 L (33.0-37.0) g/dL RDW 15.8 H (11.5-14.5) % Plt Count 208 (130-400) K/uL MPV 10.4 (7.2-11.7) fL Neut % (Auto) 64.4 (50.0-75.0) % Lymph % (Auto) 18.3 L (20.0-40.0) % Chase % (Auto) 15.9 H (0.0-10.0) % Eos % (Auto) 1.0 (0.0-4.0) % Baso % (Auto) 0.4 (0.0-2.0) % Neut # 7.7 H (1.8-7.0) K/uL Lymph # 2.2 (1.0-4.3) K/uL Chase # 1.9 H (0.0-0.8) K/uL Eos # 0.1 (0.0-0.7) K/uL Baso # 0.1 (0.0-0.2) K/uL PT (9.7-12.2) SECONDS INR APTT (21-34) SECONDS Sodium 133 (132-148) mmol/L Potassium 3.3 L (3.6-5.2) mmol/L Chloride 101 (98-107) mmol/L Carbon Dioxide 20 L (22-30) mmol/L Anion Gap 15 (10-20) BUN 32 H (7-17) mg/dL Creatinine 3.7 H (0.7-1.2) mg/dL Est GFR ( Amer) 15 Est GFR (Non-Af Amer) 12 Random Glucose 110 H (65-105) mg/dL Calcium 8.4 L (8.6-10.4) mg/dl Phosphorus (2.5-4.5) mg/dL Magnesium (1.6-2.3) mg/dL Total Bilirubin 0.6 (0.2-1.3) mg/dL AST 27 (14-36) U/L ALT 28 (9-52) U/L Alkaline Phosphatase 54 (38-126) U/L Troponin I 0.0190 (0.00-0.120) ng/mL NT-Pro-B Natriuret Pep 292 (0-900) pg/mL Total Protein 6.6 (6.3-8.3) g/dL Albumin 3.4 L (3.5-5.0) g/dL Globulin 3.2 (2.2-3.9) gm/dL Albumin/Globulin Ratio 1.1 (1.0-2.1) Urine Color (YELLOW) Urine Clarity (Clear) Urine pH (5.0-8.0) Ur Specific [place] (1.003-1.030) Urine Protein (NEGATIVE) mg/dL Urine Glucose (UA) (Normal) mg/dL Urine Ketones (NEGATIVE) mg/dL Urine Blood (NEGATIVE) Urine Nitrate (NEGATIVE) Urine Bilirubin (NEGATIVE) Urine Urobilinogen (0.2-1.0) mg/dL Ur Leukocyte Esterase (Negative) Paz/uL Urine WBC (Auto) (0-5) /hpf Urine RBC (Auto) (0-3) /hpf Ur Squamous Epith Cells (0-5) /hpf Urine Bacteria (<OCC) Urine Opiates Screen Negative (NEGATIVE) Urine Methadone Screen Negative (NEGATIVE) Ur Barbiturates Screen Negative (NEGATIVE) Ur Phencyclidine Scrn Negative (NEGATIVE) Ur Amphetamines Screen Negative (NEGATIVE) U Benzodiazepines Scrn Positive (NEGATIVE) U Oth Cocaine Metabols Negative (NEGATIVE) U Cannabinoids Screen Negative (NEGATIVE) Alcohol, Quantitative < 10 (0-10) mg/dl 01/10/17 Range/Units 10:08 WBC (4.8-10.8) K/uL RBC (3.80-5.20) Mil/uL Hgb (11.0-16.0) g/dL Hct (34.0-47.0) % MCV (81.0-99.0) fL MCH (27.0-31.0) pg MCHC (33.0-37.0) g/dL RDW (11.5-14.5) % Plt Count (130-400) K/uL MPV (7.2-11.7) fL Neut % (Auto) (50.0-75.0) % Lymph % (Auto) (20.0-40.0) % Chase % (Auto) (0.0-10.0) % Eos % (Auto) (0.0-4.0) % Baso % (Auto) (0.0-2.0) % Neut # (1.8-7.0) K/uL Lymph # (1.0-4.3) K/uL Chase # (0.0-0.8) K/uL Eos # (0.0-0.7) K/uL Baso # (0.0-0.2) K/uL PT (9.7-12.2) SECONDS INR APTT (21-34) SECONDS Sodium (132-148) mmol/L Potassium (3.6-5.2) mmol/L Chloride (98-107) mmol/L Carbon Dioxide (22-30) mmol/L Anion Gap (10-20) BUN (7-17) mg/dL Creatinine (0.7-1.2) mg/dL Est GFR ( Amer) Est GFR (Non-Af Amer) Random Glucose (65-105) mg/dL Calcium (8.6-10.4) mg/dl Phosphorus (2.5-4.5) mg/dL Magnesium (1.6-2.3) mg/dL Total Bilirubin (0.2-1.3) mg/dL AST (14-36) U/L ALT (9-52) U/L Alkaline Phosphatase (38-126) U/L Troponin I (0.00-0.120) ng/mL NT-Pro-B Natriuret Pep (0-900) pg/mL Total Protein (6.3-8.3) g/dL Albumin (3.5-5.0) g/dL Globulin (2.2-3.9) gm/dL Albumin/Globulin Ratio (1.0-2.1) Urine Color Anu (YELLOW) Urine Clarity Hazy (Clear) Urine pH 5.0 (5.0-8.0) Ur Specific [place] 1.017 (1.003-1.030) Urine Protein 1+ H (NEGATIVE) mg/dL Urine Glucose (UA) Normal (Normal) mg/dL Urine Ketones Negative (NEGATIVE) mg/dL Urine Blood Negative (NEGATIVE) Urine Nitrate Negative (NEGATIVE) Urine Bilirubin Negative (NEGATIVE) Urine Urobilinogen 2.0 H (0.2-1.0) mg/dL Ur Leukocyte Esterase 2+ H (Negative) Paz/uL Urine WBC (Auto) 35 H (0-5) /hpf Urine RBC (Auto) 4 H (0-3) /hpf Ur Squamous Epith Cells 2 (0-5) /hpf Urine Bacteria Few H (<OCC) Urine Opiates Screen (NEGATIVE) Urine Methadone Screen (NEGATIVE) Ur Barbiturates Screen (NEGATIVE) Ur Phencyclidine Scrn (NEGATIVE) Ur Amphetamines Screen (NEGATIVE) U Benzodiazepines Scrn (NEGATIVE) U Oth Cocaine Metabols (NEGATIVE) U Cannabinoids Screen (NEGATIVE) Alcohol, Quantitative (0-10) mg/dl Laboratory Results - last 24 hr 01/10/17 01/10/17 01/10/17 10:08 10:08 21:02 WBC RBC Hgb Hct MCV MCH MCHC RDW Plt Count MPV Neut % (Auto) Lymph % (Auto) Chase % (Auto) Eos % (Auto) Baso % (Auto) Neut # Lymph # Chase # Eos # Baso # PT INR APTT Sodium 133 Potassium 3.3 L Chloride 101 Carbon Dioxide 20 L Anion Gap 15 BUN 32 H Creatinine 3.7 H Est GFR ( Amer) 15 Est GFR (Non-Af Amer) 12 Random Glucose 110 H Calcium 8.4 L Phosphorus Magnesium Total Bilirubin 0.6 AST 27 ALT 28 Alkaline Phosphatase 54 Troponin I 0.0190 NT-Pro-B Natriuret Pep 292 Total Protein 6.6 Albumin 3.4 L Globulin 3.2 Albumin/Globulin Ratio 1.1 Urine Color Anu Urine Clarity Hazy Urine pH 5.0 Ur Specific [place] 1.017 Urine Protein 1+ H Urine Glucose (UA) Normal Urine Ketones Negative Urine Blood Negative Urine Nitrate Negative Urine Bilirubin Negative Urine Urobilinogen 2.0 H Ur Leukocyte Esterase 2+ H Urine WBC (Auto) 35 H Urine RBC (Auto) 4 H Ur Squamous Epith Cells 2 Urine Bacteria Few H Urine Opiates Screen Negative Urine Methadone Screen Negative Ur Barbiturates Screen Negative Ur Phencyclidine Scrn Negative Ur Amphetamines Screen Negative U Benzodiazepines Scrn Positive U Oth Cocaine Metabols Negative U Cannabinoids Screen Negative Alcohol, Quantitative < 10 01/10/17 01/10/17 01/11/17 21:02 21:02 06:57 WBC 11.9 H 8.6 RBC 3.60 L 3.42 L Hgb 10.6 L 10.3 L Hct 32.4 L 30.9 L MCV 90.1 D 90.3 MCH 29.4 30.1 MCHC 32.6 L 33.3 RDW 15.8 H 16.1 H Plt Count 208 185 MPV 10.4 9.9 Neut % (Auto) 64.4 60.0 Lymph % (Auto) 18.3 L 23.6 Chase % (Auto) 15.9 H 14.6 H Eos % (Auto) 1.0 1.4 Baso % (Auto) 0.4 0.4 Neut # 7.7 H 5.2 Lymph # 2.2 2.0 Chase # 1.9 H 1.3 H Eos # 0.1 0.1 Baso # 0.1 0.0 PT 10.9 INR 1.0 APTT 29 Sodium Potassium Chloride Carbon Dioxide Anion Gap BUN Creatinine Est GFR ( Amer) Est GFR (Non-Af Amer) Random Glucose Calcium Phosphorus Magnesium Total Bilirubin AST ALT Alkaline Phosphatase Troponin I NT-Pro-B Natriuret Pep Total Protein Albumin Globulin Albumin/Globulin Ratio Urine Color Urine Clarity Urine pH Ur Specific [place] Urine Protein Urine Glucose (UA) Urine Ketones Urine Blood Urine Nitrate Urine Bilirubin Urine Urobilinogen Ur Leukocyte Esterase Urine WBC (Auto) Urine RBC (Auto) Ur Squamous Epith Cells Urine Bacteria Urine Opiates Screen Urine Methadone Screen Ur Barbiturates Screen Ur Phencyclidine Scrn Ur Amphetamines Screen U Benzodiazepines Scrn U Oth Cocaine Metabols U Cannabinoids Screen Alcohol, Quantitative 01/11/17 06:57 WBC RBC Hgb Hct MCV MCH MCHC RDW Plt Count MPV Neut % (Auto) Lymph % (Auto) Chase % (Auto) Eos % (Auto) Baso % (Auto) Neut # Lymph # Chase # Eos # Baso # PT INR APTT Sodium 139 Potassium 3.5 L Chloride 111 H Carbon Dioxide 18 L Anion Gap 14 BUN 24 H Creatinine 1.8 H Est GFR ( Amer) 35 Est GFR (Non-Af Amer) 29 Random Glucose 103 Calcium 7.6 L Phosphorus 3.1 Magnesium 2.2 Total Bilirubin 0.4 AST 17 ALT 25 Alkaline Phosphatase 47 Troponin I NT-Pro-B Natriuret Pep Total Protein 5.8 L Albumin 2.8 L Globulin 3.0 Albumin/Globulin Ratio 0.9 L Urine Color Urine Clarity Urine pH Ur Specific [place] Urine Protein Urine Glucose (UA) Urine Ketones Urine Blood Urine Nitrate Urine Bilirubin Urine Urobilinogen Ur Leukocyte Esterase Urine WBC (Auto) Urine RBC (Auto) Ur Squamous Epith Cells Urine Bacteria Urine Opiates Screen Urine Methadone Screen Ur Barbiturates Screen Ur Phencyclidine Scrn Ur Amphetamines Screen U Benzodiazepines Scrn U Oth Cocaine Metabols U Cannabinoids Screen Alcohol, Quantitative EKG/Cardiology Studies: Cardiology / EKG Studies 01/10/17 20:38 ELECTROCARDIOGRAM Stat Comment: Mode Of Transportation: BED Reason For Exam: SOB Review of Systems - Constitutional Constitutional: Weakness. absent: Fever, Chills, Sweats - EENT Eyes: absent: Blurred Vision, Change in Vision Ears: absent: Dizziness - Cardiovascular Cardiovascular: absent: Chest Pain, Chest Pain with Activity, Diaphoresis, Dyspnea, Edema, Palpitations, Syncope - Respiratory Respiratory: absent: Dyspnea, Dyspnea on Exertion, Pain on Inspiration, Chest Congestion - Gastrointestinal Gastrointestinal: absent: Abdominal Pain, Bloating, Cramping, Diarrhea, Nausea, Vomiting - Genitourinary Genitourinary: absent: Dysuria, Hematuria, Urinary Frequency - Musculoskeletal Musculoskeletal: absent: Numbness, Tingling - Neurological Neurological: Weakness. absent: Dizziness, Headaches, Tingling - Endocrine Endocrine: Fatigue. absent: Palpitations Critical Care Progress Note - Nutrition Nutrition: Nutrition Category Date Time Status Heart Healthy Diet [DIET] Diets 01/11/17 Breakfast Active Assessment/Plan - Assessment and Plan (Free Text) Assessment: Patient is a 61 year old female with past medical history of HTN, HLD, COPD, CAD , Anxiety, Arthritis, Asthma, Back problems, depression, hypothyroidism, osteoporosis, TIA who was admitted for weakness due to absent po intake for 3 days and hypotension Plan: Neuro: Alert, Awake and oriented Cardio: Acute issues: hypotension Medication/Management: * NS @ 125mls/hr * Encourage PO intake Pulm: Pneumonia Chest X-ray: Infiltrate at the left lower lobe and right lower lobe Medication/Management : * Azithromycin 500mg IV Q24H GI: No acute issues ID: Leukocytosis, UA ( 2+ LE and 35 WBC) Medication/Management: * Vanco 1gm IVPB Q24H * Zosyn 2.25gm IVPB Q8H Prophylaxis: DVT: Heparin 5,000 units SC Q8H GI: Protonix 20mg PO daily Florastor 250mg PO BID Encourage PO intake
[2017-01-11] MEDS: Saccharomyces Boulardi 250 mg Cap PO SCH (17:38)
--- NOTE | 2017-01-11 20:13 | CP.PCM.CON ---
History of Present Illness - History of Present Illness History of Present Illness: INFECTIOUS DISEASE CONSULT; HPI; 61-year-old female with past medical history off HTN, hypertension, HLD, COPD, anxiety, arthritis, asthma, depression, hypothyroidism and with history of TIAs X 2 in the past, who presented to the ER with nonspecific complaints and with history of not eating or drinking for 3 days, shortness of breath and weakness. In the ER initially she was hypotensive and responded to IV fluids. Patient was also noted to be hallucinating the patient was started on broad- spectrum antibiotics and admitted to ICU for severe Sepsis/and bilateral pneumonia. Patient denies any history of fever, chills, chest pains except for minimal cough. Patient also denies any abdominal pain, nausea or vomiting or diarrhea. Patient does give history off carotid endarterectomy, coronary stent. PATIENT IS A SMOKER AND SMOKES ABOUT A PACK A DAY FOR SEVERAL YEARS. PATIENT DENIES ANY RECENT CONTACT WITH ANY SICK PATIENT OR RECENT TRAVEL. PATIENT ALSO REPORTS TAKING THE FLU SHOT ABOUT 2 WEEKS AGO. INFECTIOUS DISEASE CONSULTATION REQUESTED BY PMD FOR BILATERAL PNEUMONIA AND SEPSIS. CHEST X-RAY ON ADMISSION SHOWED BILATERAL HETEROGENEOUS DENSITIES BOTH LOWER LOBES. PMH: Anxiety, Arthritis, Asthma, Back Problems, CAD, COPD, Depression, HTN, Hypercholesterolemia, Hypothyroidism, Osteoporosis, TIA Surgical History: Carotid Endarterectomy, Coronary Stent - [facility] Procedures ANGIOPLASTY OF OTHER NON-CORONARY VESSEL(S) (02/21/14) CONTRAST AORTOGRAM (02/21/14) CONTRAST ARTERIOGRAM-LEG (02/21/14) FLUOROSCOPY OF L LOW EXTREM ART USING L OSM CONTRAST (01/11/15) FLUOROSCOPY OF R LOW EXTREM ART USING L OSM CONTRAST (01/11/15) INJECT/INFUSE NEC (12/24/13) INSEJ [id number] PERIPHERAL NON-CORONARY VES STENT(S) (02/21/14) INSERTION OF ONE VASCULAR STENT (02/21/14) INTRODUCTION OF SERUM/TOX/VACCINE INTO MUSCLE, PERC APPROACH (01/06/15) PROCEDURE ON SINGLE VESSEL (02/21/14) Family History: States: Unknown Family Hx - Social History Hx Tobacco Use: Yes Hx Alcohol Use: No Hx Substance Use: No - Immunization History Hx Tetanus Toxoid Vaccination: No Hx Influenza Vaccination: Yes Hx Pneumococcal Vaccination: No Review of Systems - Constitutional Constitutional: Lethargy, Weakness. absent: Chills, Fever, Headache - EENT Nose/Mouth/Throat: Dry Mouth. absent: Mouth Lesions - Cardiovascular Cardiovascular: Dyspnea, Edema (1+ LOWER EXTREMITIES), Pedal Edema. absent: Chest Pain - Gastrointestinal Gastrointestinal: absent: Diarrhea, Nausea, Vomiting - Genitourinary Genitourinary: absent: Dysuria, Urinary Frequency, Urinary Hesitance, Bladder Distension - Musculoskeletal Musculoskeletal: Back Pain (CHRONIC IN NATURE.) - Integumentary Integumentary: absent: Rash - Psychiatric Psychiatric: Anxiety, Depression - Hematologic/Lymphatic Hematologic: As Per HPI. absent: Easy Bruising, Lymphadenopathy Past Patient History - Infectious Disease Hx of Infectious Diseases: None - Past Medical History & Family History Past Medical History?: Yes - Past Social History Smoking Status: Light Smoker < 10 Cigarettes Daily - CARDIAC Hx Hypercholesterolemia: Yes Hx Hypertension: Yes - PULMONARY Hx Chronic Obstructive Pulmonary Disease (COPD): Yes - NEUROLOGICAL Hx Transient Ischemic Attacks (TIA): Yes - HEENT Hx HEENT Problems: No - ENDOCRINE/METABOLIC Hx Hypothyroidism: Yes - HEMATOLOGICAL/ONCOLOGICAL Hx Blood Disorders: No - INTEGUMENTARY Hx Dermatological Problems: No - MUSCULOSKELETAL/RHEUMATOLOGICAL Hx Arthritis: Yes - GASTROINTESTINAL Hx Gastrointestinal Disorders: No - GENITOURINARY/GYNECOLOGICAL Hx Genitourinary Disorders: No - PSYCHIATRIC Hx Anxiety: Yes Hx Depression: Yes Hx Substance Use: No - SURGICAL HISTORY Hx Carotid Endarterectomy: Yes Hx Coronary Stent: Yes - ANESTHESIA Hx Anesthesia: Yes Hx Anesthesia Reactions: No Hx Malignant Hyperthermia: No Meds Allergies/Adverse Reactions: Allergies Allergy/AdvReac Type Severity Reaction Status Date / Time budesonide [From Symbicort] Allergy SHORTNESS Verified 01/05/17 12:28 OF BREATH formoterol fumarate Allergy SHORTNESS Verified 01/10/17 20:55 [From Symbicort] OF BREATH - Medications Medications: Current Medications Acetaminophen (Tylenol 325mg Tab) 650 mg PO Q6 PRN PRN Reason: Pain, moderate (4-7) Last Admin: 01/11/17 10:52 Dose: 650 mg Heparin Sodium (Porcine) (Heparin) 5,000 units SC Q8 [facility] Last Admin: 01/11/17 14:07 Dose: 5,000 units Azithromycin 500 mg/ Sodium (Chloride) 250 mls @ 250 mls/hr IVPB Q24H [facility] Last Admin: 01/11/17 01:58 Dose: 250 mls/hr Vancomycin HCl 1 gm/ Sodium (Chloride) 250 mls @ 166.7 mls/hr IVPB Q24H [facility] Piperacillin Sod/Tazobactam Sod (Zosyn 2.25 Gm Iv Premix) 2.25 gm in 50 mls @ 100 mls/hr IVPB Q8H [facility] Ibuprofen (Motrin Tab) 600 mg PO TID PRN PRN Reason: Pain Last Admin: 01/11/17 19:33 Dose: 600 mg Mirtazapine (Remeron) 15 mg PO HS [facility] Pantoprazole Sodium (Protonix Ec Tab) 20 mg PO DAILY [facility] Last Admin: 01/11/17 10:53 Dose: 20 mg Saccharomyces Boulardii (Florastor) 250 mg PO BID [facility] Last Admin: 01/11/17 17:38 Dose: 250 mg Physical Exam - Constitutional Appears: No Acute Distress - Head Exam Head Exam: NORMAL INSPECTION - Eye Exam Eye Exam: EOMI, PERRL - ENT Exam ENT Exam: Normal Oropharynx - Neck Exam Neck exam: Negative for: Meningismus - Respiratory Exam Respiratory Exam: Decreased Breath Sounds (DIMINISHED BREATH SOUNDS AT THE BASES.), Prolonged Expiratory Phase - Cardiovascular Exam Cardiovascular Exam: REGULAR RHYTHM, +S1, +S2 - GI/Abdominal Exam GI & Abdominal Exam: Normal Bowel Sounds, Soft. absent: Tenderness - Extremities Exam Extremities exam: Positive for: pedal edema, pedal pulses present. Negative for : calf tenderness - Neurological Exam Neurological exam: Alert, CN II-XII Intact, Oriented x3 - Psychiatric Exam Psychiatric exam: Normal Mood - Skin Skin Exam: Normal Color, Warm Results - Vital Signs Recent Vital Signs: Last Vital Signs Temp 97.6 F 01/11/17 12:00 Pulse 80 01/11/17 11:40 Resp 11 L 01/11/17 11:40 BP 141/73 01/11/17 16:00 Pulse Ox 98 01/11/17 14:24 - Labs Result Diagrams: 01/11/17 06:57 01/11/17 06:57 Labs: Laboratory Results - last 24 hr 01/10/17 01/10/17 01/10/17 10:08 10:08 21:02 WBC RBC Hgb Hct MCV MCH MCHC RDW Plt Count MPV Neut % (Auto) Lymph % (Auto) [place] % (Auto) Eos % (Auto) Baso % (Auto) Neut # Lymph # [place] # Eos # Baso # PT INR APTT Sodium 133 Potassium 3.3 L Chloride 101 Carbon Dioxide 20 L Anion Gap 15 BUN 32 H Creatinine 3.7 H Est GFR ( Amer) 15 Est GFR (Non-Af Amer) 12 Random Glucose 110 H Calcium 8.4 L Phosphorus Magnesium Total Bilirubin 0.6 AST 27 ALT 28 Alkaline Phosphatase 54 Troponin I 0.0190 NT-Pro-B Natriuret Pep 292 Total Protein 6.6 Albumin 3.4 L Globulin 3.2 Albumin/Globulin Ratio 1.1 Urine Color Anu Urine Clarity Hazy Urine pH 5.0 Ur Specific [place] 1.017 Urine Protein 1+ H Urine Glucose (UA) Normal Urine Ketones Negative Urine Blood Negative Urine Nitrate Negative Urine Bilirubin Negative Urine Urobilinogen 2.0 H Ur Leukocyte Esterase 2+ H Urine WBC (Auto) 35 H Urine RBC (Auto) 4 H Ur Squamous Epith Cells 2 Urine Bacteria Few H Urine Opiates Screen Negative Urine Methadone Screen Negative Ur Barbiturates Screen Negative Ur Phencyclidine Scrn Negative Ur Amphetamines Screen Negative U Benzodiazepines Scrn Positive U Oth Cocaine Metabols Negative U Cannabinoids Screen Negative Alcohol, Quantitative < 10 01/10/17 01/10/17 01/11/17 21:02 21:02 06:57 WBC 11.9 H 8.6 RBC 3.60 L 3.42 L Hgb 10.6 L 10.3 L Hct 32.4 L 30.9 L MCV 90.1 D 90.3 MCH 29.4 30.1 MCHC 32.6 L 33.3 RDW 15.8 H 16.1 H Plt Count 208 185 MPV 10.4 9.9 Neut % (Auto) 64.4 60.0 Lymph % (Auto) 18.3 L 23.6 [place] % (Auto) 15.9 H 14.6 H Eos % (Auto) 1.0 1.4 Baso % (Auto) 0.4 0.4 Neut # 7.7 H 5.2 Lymph # 2.2 2.0 [place] # 1.9 H 1.3 H Eos # 0.1 0.1 Baso # 0.1 0.0 PT 10.9 INR 1.0 APTT 29 Sodium Potassium Chloride Carbon Dioxide Anion Gap BUN Creatinine Est GFR ( Amer) Est GFR (Non-Af Amer) Random Glucose Calcium Phosphorus Magnesium Total Bilirubin AST ALT Alkaline Phosphatase Troponin I NT-Pro-B Natriuret Pep Total Protein Albumin Globulin Albumin/Globulin Ratio Urine Color Urine Clarity Urine pH Ur Specific [place] Urine Protein Urine Glucose (UA) Urine Ketones Urine Blood Urine Nitrate Urine Bilirubin Urine Urobilinogen Ur Leukocyte Esterase Urine WBC (Auto) Urine RBC (Auto) Ur Squamous Epith Cells Urine Bacteria Urine Opiates Screen Urine Methadone Screen Ur Barbiturates Screen Ur Phencyclidine Scrn Ur Amphetamines Screen U Benzodiazepines Scrn U Oth Cocaine Metabols U Cannabinoids Screen Alcohol, Quantitative 01/11/17 06:57 WBC RBC Hgb Hct MCV MCH MCHC RDW Plt Count MPV Neut % (Auto) Lymph % (Auto) [place] % (Auto) Eos % (Auto) Baso % (Auto) Neut # Lymph # [place] # Eos # Baso # PT INR APTT Sodium 139 Potassium 3.5 L Chloride 111 H Carbon Dioxide 18 L Anion Gap 14 BUN 24 H Creatinine 1.8 H Est GFR ( Amer) 35 Est GFR (Non-Af Amer) 29 Random Glucose 103 Calcium 7.6 L Phosphorus 3.1 Magnesium 2.2 Total Bilirubin 0.4 AST 17 ALT 25 Alkaline Phosphatase 47 Troponin I NT-Pro-B Natriuret Pep Total Protein 5.8 L Albumin 2.8 L Globulin 3.0 Albumin/Globulin Ratio 0.9 L Urine Color Urine Clarity Urine pH Ur Specific [place] Urine Protein Urine Glucose (UA) Urine Ketones Urine Blood Urine Nitrate Urine Bilirubin Urine Urobilinogen Ur Leukocyte Esterase Urine WBC (Auto) Urine RBC (Auto) Ur Squamous Epith Cells Urine Bacteria Urine Opiates Screen Urine Methadone Screen Ur Barbiturates Screen Ur Phencyclidine Scrn Ur Amphetamines Screen U Benzodiazepines Scrn U Oth Cocaine Metabols U Cannabinoids Screen Alcohol, Quantitative - Imaging and Cardiology Chest x-ray Status: Report reviewed by me (see full report.) Assessment & Plan (1) Severe sepsis Status: Acute (2) Pneumonia Status: Acute (3) Carotid stenosis, symptomatic w/o infarct Status: Acute (4) Acute renal insufficiency Status: Acute (5) Chronic back pain Status: Acute - Assessment and Plan (Free Text) Plan: PANCULTURES ESR. CRP. ATYPICAL TITERS CONTINUE iv zOSYN 2.25 iv PIGGYBACK EVERY 8 HOURLY 01/11/17. CONTINUE iv VANCOMYCIN 1 G EVERY 24 HOURLY TO COVER FOR STAPH AND STREP. . CONTINUE zITHROMAX 500 MG ONCE A DAY DAILY 01/11/17. SPUTUM gRAM STAIN AND CULTURE. MRSA SCREEN. FOLLOW-UP SERIAL CHEST X-RAYS. fOLLOW-UP CULTURES TO ADJUST ANTIBIOTICS. fOLLOW-UP RENAL FUNCTIONS CLOSELY PRESENTLY IMPROVING WITH iv FLUIDS AND HYDRATION. wE'LL FOLLOW ALONG WITH YOU. tHANK YOU.
--- NOTE | 2017-01-11 21:40 | CARD ---
APPROVED REPORT EKG Measurement Heart [id number] ID [id number] <Conclusion> Sinus tachycardia Moderate voltage criteria for LVH, may be normal variant Inferior infarct, age undetermined Abnormal ECG
[2017-01-11] MEDS: Piperacill/Tazo 2.25gm in Dex 2.25 GM/50 ML BAG IVPB SCH (21:59)
[2017-01-12] MEDS: Azithromycin 500 MG in Sodium Chloride 0.9% 250 ML IVPB SCH (00:02)
[2017-01-12] MEDS: Piperacill/Tazo 2.25gm in Dex 2.25 GM/50 ML BAG IVPB SCH ×3 (05:36→22:32)
[2017-01-12 06:05] LABS: HEMATOCRIT 30.1 % (34.0-47.0); MEAN CORPUSCULAR HEMOGLOBIN 29.8 pg (27.0-31.0); MEAN CORPUSCULAR HGB CONC 33.3 g/dL (33.0-37.0); MEAN PLATELET VOLUME 10.1 fL (7.2-11.7); WHITE BLOOD COUNT 6.7 K/uL (4.8-10.8)
[2017-01-12 06:12] LABS: CHLORIDE 110 mmol/L (98-107); SODIUM 140 mmol/L (132-148)
[2017-01-12 06:13] LABS: POTASSIUM 3.7 mmol/L (3.6-5.2)
[2017-01-12 06:14] LABS: GFR AFRICAN-AMERICAN > 60
[2017-01-12 06:15] LABS: ALB/GLOB RATIO 0.9 (1.0-2.1); ALKALINE PHOSPHATASE 49 U/L (38-126); ALT/SGPT 28 U/L (9-52); AST/SGOT 17 U/L (14-36); BILIRUBIN,TOTAL 0.3 mg/dL (0.2-1.3); BLOOD UREA NITROGEN 18 mg/dL (7-17); CALCIUM 7.9 mg/dl (8.6-10.4); CARBON DIOXIDE 21 mmol/L (22-30); GLUCOSE,RANDOM 81 mg/dL (65-105)
[2017-01-12 09:18] LABS: EOS # 0.2 K/uL (0.0-0.7); LYMPH # 2.5 K/uL (1.0-4.3); MEAN CELL VOLUME 89.7 fL (81.0-99.0); MONO # 0.7 K/uL (0.0-0.8)
[2017-01-12] MEDS: Saccharomyces Boulardi 250 mg Cap PO SCH ×2 (10:16→17:34)
[2017-01-12] MEDS: Pantoprazole 20 mg EC Tab PO SCH (10:21)
--- NOTE | 2017-01-12 13:57 | CP.PCM.PN ---
Subjective - Date & Time of Evaluation Date of Evaluation: 01/12/17 Time of Evaluation: 13:55 - Subjective Subjective: CHIEF COMPLAINTS TODAY : GEN. PAIN ROS. HEENT : N. Resp : No cough, wheezing ,pleuritic CP ,or hemoptysis Cardio : No anginal CP, PND, orthopnea, palpitation GI : No abd.pain, n/v ,diarrhea or GI bleeding . [employer] : No headache, vertigo, focal deficit. Musculoskel : No joint swelling , Derm : No rash Psych : Normal affect. Ext : No swelling ,calf pain PE. Pt. is alert awake in no distress. V.S As noted in the chart Head ,ear nose,throat and eyes : Normal. Neck : Supple with normal carotids. Lungs: Clear air entry. CREPTS Heart : S1 & S2 normal with S4. No murmur. Abd : Soft non tender with normal bowel sounds. Neuro : Moves all ext. with no localized deficit. Ext : No edema with intact pulses.Non tender calves Derm : No rashes or decubitus ulcer. LABS/RADIOLOGY: ASSESSMENT/PLAN : IV AB CAROTID DOPPLER Objective - Vital Signs/Intake and Output Vital Signs (last 24 hours): Temp Pulse Resp BP Pulse Ox 98 F 81 15 178/83 H 98 01/12/17 08:00 01/12/17 13:06 01/12/17 12:34 01/12/17 12:34 01/11/17 14:24 Intake and Output: 01/12/17 01/12/17 11:59 23:59 Intake Total 1200 Output Total 500 Balance 700 - Medications Medications: Current Medications Acetaminophen (Tylenol 325mg Tab) 650 mg PO Q6 PRN PRN Reason: Pain, moderate (4-7) Last Admin: 01/12/17 04:24 Dose: 650 mg Cilostazol (Pletal) 100 mg PO ACBD [facility] Clopidogrel Bisulfate (Plavix) 1 mg PO DAILY [facility] Divalproex Sodium (Depakote Er) 750 mg PO TID [facility] Famotidine (Pepcid) 20 mg PO BID [facility] Gabapentin (Neurontin) 400 mg PO TID [facility] Last Admin: 01/12/17 13:10 Dose: 400 mg Heparin Sodium (Porcine) (Heparin) 5,000 units SC Q8 [facility] Last Admin: 01/12/17 13:11 Dose: 5,000 units Hydralazine HCl (Apresoline) 50 mg PO TID [facility] Last Admin: 01/12/17 13:15 Dose: 50 mg Azithromycin 500 mg/ Sodium (Chloride) 250 mls @ 250 mls/hr IVPB Q24H [facility] Last Admin: 01/12/17 00:02 Dose: 250 mls/hr Vancomycin HCl 1 gm/ Sodium (Chloride) 250 mls @ 166.7 mls/hr IVPB Q24H [facility] Last Admin: 01/12/17 00:04 Dose: 166.7 mls/hr Piperacillin Sod/Tazobactam Sod (Zosyn 2.25 Gm Iv Premix) 2.25 gm in 50 mls @ 100 mls/hr IVPB Q8H [facility] Last Admin: 01/12/17 13:11 Dose: 100 mls/hr Ibuprofen (Motrin Tab) 600 mg PO TID PRN PRN Reason: Pain Last Admin: 01/12/17 13:13 Dose: 600 mg Lisinopril (Zestril) 10 mg PO DAILY [facility] Last Admin: 01/12/17 13:10 Dose: 10 mg Mirtazapine (Remeron) 15 mg PO HS [facility] Last Admin: 01/11/17 21:53 Dose: 15 mg Pantoprazole Sodium (Protonix Ec Tab) 20 mg PO DAILY [facility] Last Admin: 01/12/17 10:21 Dose: 20 mg Quetiapine Fumarate (Seroquel) 50 mg PO HS [facility] Rosuvastatin Calcium (Crestor) 20 mg PO DAILY [facility] Saccharomyces Boulardii (Florastor) 250 mg PO BID [facility] Last Admin: 01/12/17 10:16 Dose: 250 mg - Labs Labs: 01/12/17 05:51 01/12/17 05:51 PT 10.9 SECONDS (9.7-12.2) 01/10/17 21:02 INR 1.0 01/10/17 21:02 APTT 29 SECONDS (21-34) 01/10/17 21:02
[2017-01-12] MEDS: Cilostazol 100 mg Tab UD PO SCH (17:33)
[2017-01-12] MEDS: Promethazine 6.25 MG/5 ML CUP PO PRN (17:34)
[2017-01-12] MEDS: Albuterol-Ipratrop 3 mg / 0.5 (3 ml) UD INH SCH (19:27)
[2017-01-12] MEDS ORDERED: Oxycodone/Acetaminophen 5/325 mg Tab PO ONE (21:00)
--- NOTE | 2017-01-12 22:25 | CP.PCM.PN ---
Subjective - Date & Time of Evaluation Date of Evaluation: 01/12/17 Time of Evaluation: 22:25 - Subjective Subjective: CHIEF COMPLAINTS TODAY : C/O PRODUCTIVE COUGH. Once nebulizer treatment and cough syrup Also requesting for albuterol inhaler which patient uses at home. ROS. HEENT : N. Resp : +ve COUGH, wheezing , NO pleuritic CP ,or hemoptysis Cardio : No anginal CP, PND, orthopnea, palpitation GI : No abd.pain, n/v ,diarrhea or GI bleeding . [employer] : No headache, vertigo, focal deficit. Musculoskel : No joint swelling , Derm : No rash Psych : Normal affect. Ext : No swelling ,calf pain PE. Pt. is alert awake in no distress. V.S As noted in the chart Head ,ear nose,throat and eyes : Normal. Neck : Supple with normal carotids. Lungs: B/L COURSE. CREPTS Heart : S1 & S2 normal with S4. No murmur. Abd : Soft non tender with normal bowel sounds. Neuro : Moves all ext. with no localized deficit. Ext : No edema with intact pulses.Non tender calves Derm : No rashes or decubitus ulcer. LABS/RADIOLOGY: ESR 48 cREATININE 0.8/bun 18 crp> 15.00 INFLUENZA anb NEGATIVE Objective - Vital Signs/Intake and Output Vital Signs (last 24 hours): Temp Pulse Resp BP Pulse Ox 97.9 F 94 H 20 175/83 H 99 01/12/17 15:18 01/12/17 19:29 01/12/17 15:18 01/12/17 15:18 01/12/17 15:18 Intake and Output: 01/12/17 01/13/17 18:59 06:59 Intake Total 350 Output Total 500 Balance -150 - Medications Medications: Current Medications Acetaminophen (Tylenol 325mg Tab) 650 mg PO Q6 PRN PRN Reason: Pain, moderate (4-7) Last Admin: 01/12/17 04:24 Dose: 650 mg Albuterol/Ipratropium (Duoneb 3 Mg/0.5 Mg (3 Ml) Ud) 3 ml INH RQ6 [facility] Last Admin: 01/12/17 19:27 Dose: 3 ml Cilostazol (Pletal) 100 mg PO ACBD [facility] Last Admin: 01/12/17 17:33 Dose: 100 mg Clopidogrel Bisulfate (Plavix) 1 mg PO DAILY [facility] Divalproex Sodium (Depakote Er) 750 mg PO TID [facility] Famotidine (Pepcid) 20 mg PO BID [facility] Last Admin: 01/12/17 17:33 Dose: 20 mg Gabapentin (Neurontin) 400 mg PO TID [facility] Last Admin: 01/12/17 17:34 Dose: 400 mg Heparin Sodium (Porcine) (Heparin) 5,000 units SC Q8 [facility] Last Admin: 01/12/17 13:11 Dose: 5,000 units Hydralazine HCl (Apresoline) 50 mg PO TID [facility] Last Admin: 01/12/17 17:34 Dose: 50 mg Azithromycin 500 mg/ Sodium (Chloride) 250 mls @ 250 mls/hr IVPB Q24H [facility] Last Admin: 01/12/17 00:02 Dose: 250 mls/hr Vancomycin HCl 1 gm/ Sodium (Chloride) 250 mls @ 166.7 mls/hr IVPB Q24H [facility] Last Admin: 01/12/17 00:04 Dose: 166.7 mls/hr Piperacillin Sod/Tazobactam Sod (Zosyn 2.25 Gm Iv Premix) 2.25 gm in 50 mls @ 100 mls/hr IVPB Q8H [facility] Last Admin: 01/12/17 13:11 Dose: 100 mls/hr Ibuprofen (Motrin Tab) 600 mg PO TID PRN PRN Reason: Pain Last Admin: 01/12/17 13:13 Dose: 600 mg Lisinopril (Zestril) 10 mg PO DAILY [facility] Last Admin: 01/12/17 13:10 Dose: 10 mg Mirtazapine (Remeron) 15 mg PO HS [facility] Last Admin: 01/11/17 21:53 Dose: 15 mg Oxycodone/Acetaminophen (Percocet 5/325 Mg Tab) 1 tab PO ONCE ONE Stop: 01/12/17 22:04 Pantoprazole Sodium (Protonix Ec Tab) 20 mg PO DAILY [facility] Last Admin: 01/12/17 10:21 Dose: 20 mg Promethazine HCl (Phenergan Syrup) 6.25 mg PO TID PRN PRN Reason: Cough Last Admin: 01/12/17 17:34 Dose: 6.25 mg Quetiapine Fumarate (Seroquel) 50 mg PO HS [facility] Rosuvastatin Calcium (Crestor) 20 mg PO HS [facility] Saccharomyces Boulardii (Florastor) 250 mg PO BID [facility] Last Admin: 01/12/17 17:34 Dose: 250 mg - Labs Labs: 01/12/17 05:51 01/12/17 05:51 PT 10.9 SECONDS (9.7-12.2) 01/10/17 21:02 INR 1.0 01/10/17 21:02 APTT 29 SECONDS (21-34) 01/10/17 21:02 Assessment and Plan (1) Severe sepsis Status: Acute (2) Pneumonia Status: Acute (3) Carotid stenosis, symptomatic w/o infarct Status: Acute (4) Acute renal insufficiency Status: Acute (5) Chronic back pain Status: Acute - Assessment and Plan (Free Text) Plan: CONTINUE iv zOSYN 2.25 iv PIGGYBACK EVERY 8 HOURLY 01/11/17. CONTINUE iv VANCOMYCIN 1 G EVERY 24 HOURLY TO COVER FOR STAPH AND STREP. . CONTINUE zITHROMAX 500 MG ONCE A DAY DAILY 01/11/17. SPUTUM gRAM STAIN AND CULTURE -P CT CHEST WITH IV CONTRAST R/O PNEUMONIA/LOCULATED EFFUSION. NEBULIZER THERAPY WHEN NECESSARY EVERY 6 HOURLY. PHENERGAN dm 1 TEASPOON BY MOUTH WHEN NECESSARY 3 TIMES A DAY. ALBUTEROL INHALER PRN Q 6 H.
[2017-01-12] MEDS: Oxycodone/Acetaminophen 5/325 mg Tab PO ONE ×2 (22:34→22:52)
[2017-01-13] MEDS: Azithromycin 500 MG in Sodium Chloride 0.9% 250 ML IVPB SCH ×2 (00:17→23:59)
[2017-01-13] MEDS: Albuterol-Ipratrop 3 mg / 0.5 (3 ml) UD INH SCH ×4 (04:29→19:24)
[2017-01-13] MEDS: Promethazine 6.25 MG/5 ML CUP PO PRN ×3 (05:31→22:35)
[2017-01-13] MEDS: Piperacill/Tazo 2.25gm in Dex 2.25 GM/50 ML BAG IVPB SCH ×3 (05:32→22:35)
[2017-01-13 07:45] LABS: BASO # 0.1 K/uL (0.0-0.2); EOS # 0.1 K/uL (0.0-0.7); EOS % 2.2 % (0.0-4.0); HEMATOCRIT 29.3 % (34.0-47.0); LYMPH # 1.5 K/uL (1.0-4.3); LYMPH % 24.9 % (20.0-40.0); MEAN CELL VOLUME 89.4 fL (81.0-99.0); MEAN CORPUSCULAR HEMOGLOBIN 29.9 pg (27.0-31.0); MEAN CORPUSCULAR HGB CONC 33.4 g/dL (33.0-37.0); MEAN PLATELET VOLUME 9.8 fL (7.2-11.7); MONO # 0.7 K/uL (0.0-0.8); MONO % 11.5 % (0.0-10.0); RED CELL DISTRIBUTION WIDTH 15.9 % (11.5-14.5); WHITE BLOOD COUNT 6.1 K/uL (4.8-10.8)
--- NOTE | 2017-01-13 07:47 | CP.PCM.CON ---
History of Present Illness - History of Present Illness History of Present Illness: I was asked to see patient by Dr. Broussard. Patient is a 61 year old female with PMH HTN, hypercholesterolemia, PAD s/p L SFA stent in 2013 who complains of claudication. The patient reports intermittent claudication of the right leg, worse with exertion. The patient was walking with a cane. Patient denies chest pain. Review of Systems - Constitutional Constitutional: absent: As Per HPI, Anorexia, Chills, Daytime Sleepiness, Excessive Sweating, Fatigue, Fever, Frequent Falls, Headache, Increased Appetite , Lethargy, Malaise, Night Sweats, Snoring, Sleep Apnea, Weight Gain, Weight Loss, Weakness, Other - EENT Eyes: absent: As Per HPI, Blind Spots, Blurred Vision, Change in Vision, Decreased Night Vision, Diplopia, Discharge, Dry Eye, Exophthalmos, Floaters, Irritation, Itchy Eyes, Loss of Peripheral Vision, Pain, Photophobia, Requires Corrective Lenses, Sees Flashes, Spots in Vision, Tunnel Vision, Other Visual Disturbances, Loss of Vision, Other Ears: absent: As Per HPI, Decreased Hearing, Ear Discharge, Ear Pain, Tinnitus, Abnormal Hearing, Disequilibrium, Dizziness, Other Nose/Mouth/Throat: absent: As Per HPI, Epistaxis, Nasal Congestion, Nasal Discharge, Nasal Obstruction, Nasal Trauma, Nose Pain, Post Nasal Drip, Sinus Pain, Sinus Pressure, Bleeding Gums, Change in Voice, Dental Pain, Dry Mouth, Dysphagia, Halitosis, Hoarsness, Lip Swelling, Mouth Lesions, Mouth Pain, Odynophagia, Sore Throat, Throat Swelling, Tongue Swelling, Facial Pain, Neck Pain, Neck Mass, Other - Cardiovascular Additional comments: claudication - Respiratory Respiratory: absent: As Per HPI, Cough, Dyspnea, Hemoptysis, Dyspnea on Exertion , Wheezing, Snoring, Stridor, Pain on Inspiration, Chest Congestion, Excessive Mucous Production, Change in Mucous Color, Pain with Coughing, Other - Gastrointestinal Gastrointestinal: absent: As Per HPI, Abdominal Pain, Belching, Bloating, Change in Bowel Habits, Change in Stool Character, Coffee Ground Emesis, Constipation, Cramping, Diarrhea, Dyspepsia, Dysphagia, Early Satiety, Excessive Flatus, Fecal Incontinence, Heartburn, Hematemesis, Hematochezia, Loose Stools, Melena, Nausea, Odynophagia, Temesmus, Vomiting, Other - Musculoskeletal Musculoskeletal: Radiating Pain into Limb - Integumentary Integumentary: absent: As Per HPI, Acne, Alopecia, Bleeding Lesions, Change in Hair, Change in Nails, Change in Pigmentation, Changing Lesions, Dry Skin, Erythema, Furuncle, Hirsutism, Lesions, New Lesions, Non-Healing Lesions, Photosensitivity, Pruritus, Rash, Skin Pain, Skin Ulcer, Sores, Striae, Swelling , Unusual Bruising, Wounds, Jaundice, Other - Neurological Neurological: absent: As Per HPI, Abnormal Gait, Abnormal Hearing, Abnormal Movements, Abnormal Speech, Behavioral Changes, Burning Sensations, Confusion, Convulsions, Disequilibrium, Dizziness, Numbness, Focal Weakness, Frequent Falls , Headaches, Lack of Coordination, Loss of Vision, Memory Loss, Paresthesias, Radicular Pain, Restless Legs, Sensory Deficit, Syncope, Tingling, Tremor, Vertigo, Weakness, Other Visual Disturbances, Other - Psychiatric Psychiatric: absent: As Per HPI, Abnormal Sleep Pattern, Anhedonia, Anxiety, Auditory Hallucinations, Behavioral Changes, Change in Appetite, Change in Libido, Confusion, Depression, Difficulty Concentrating, Hallucinations, Homicidal Ideation, Hopelessness, Irritability, Memory Loss, Mood Swings, Panic Attacks, Paranoia, Suicidal Ideation, Visual Hallucinations, Tactile Hallucinations, Other - Endocrine Endocrine: absent: As Per HPI, Change in Body Appearance, Change in Libido, Cold Intolorance, Deepening of Voice, Excessive Sweating, Fatigue, Flushing, Heat Intolorance, Increase in Ring/Shoe/Hat Size, Palpitations, Polydipsia, Polyphagia, Polyuria, Other - Hematologic/Lymphatic Hematologic: absent: As Per HPI, Easy Bleeding, Easy Bruising, Lymphadenopathy, Other Past Patient History - Infectious Disease Hx of Infectious Diseases: None - Past Medical History & Family History Past Medical History?: Yes - Past Social History Smoking Status: Light Smoker < 10 Cigarettes Daily - CARDIAC Hx Hypercholesterolemia: Yes Hx Hypertension: Yes - PULMONARY Hx Asthma: Yes Hx Chronic Obstructive Pulmonary Disease (COPD): Yes - NEUROLOGICAL Hx Transient Ischemic Attacks (TIA): Yes - HEENT Hx HEENT Problems: No - ENDOCRINE/METABOLIC Hx Hypothyroidism: Yes - HEMATOLOGICAL/ONCOLOGICAL Hx Blood Disorders: No - INTEGUMENTARY Hx Dermatological Problems: No - MUSCULOSKELETAL/RHEUMATOLOGICAL Hx Arthritis: Yes Hx Osteoporosis: Yes - GASTROINTESTINAL Hx Gastrointestinal Disorders: No - GENITOURINARY/GYNECOLOGICAL Hx Genitourinary Disorders: No - PSYCHIATRIC Hx Anxiety: Yes Hx Depression: Yes Hx Substance Use: No - SURGICAL HISTORY Hx Carotid Endarterectomy: Yes Hx Coronary Stent: Yes - ANESTHESIA Hx Anesthesia: Yes Hx Anesthesia Reactions: No Hx Malignant Hyperthermia: No Meds Allergies/Adverse Reactions: Allergies Allergy/AdvReac Type Severity Reaction Status Date / Time budesonide [From Symbicort] Allergy SHORTNESS Verified 01/05/17 12:28 OF BREATH formoterol fumarate Allergy SHORTNESS Verified 01/10/17 20:55 [From Symbicort] OF BREATH - Medications Medications: Current Medications Acetaminophen (Tylenol 325mg Tab) 650 mg PO Q6 PRN PRN Reason: Pain, moderate (4-7) Last Admin: 01/12/17 04:24 Dose: 650 mg Albuterol/Ipratropium (Duoneb 3 Mg/0.5 Mg (3 Ml) Ud) 3 ml INH RQ6 [facility] Last Admin: 01/13/17 04:29 Dose: Not Given Cilostazol (Pletal) 100 mg PO ACBD [facility] Last Admin: 01/12/17 17:33 Dose: 100 mg Clopidogrel Bisulfate (Plavix) 1 mg PO DAILY [facility] Divalproex Sodium (Depakote Er) 750 mg PO TID [facility] Famotidine (Pepcid) 20 mg PO BID [facility] Last Admin: 01/12/17 17:33 Dose: 20 mg Gabapentin (Neurontin) 400 mg PO TID [facility] Last Admin: 01/12/17 17:34 Dose: 400 mg Heparin Sodium (Porcine) (Heparin) 5,000 units SC Q8 [facility] Last Admin: 01/13/17 05:31 Dose: 5,000 units Hydralazine HCl (Apresoline) 50 mg PO TID [facility] Last Admin: 01/12/17 17:34 Dose: 50 mg Azithromycin 500 mg/ Sodium (Chloride) 250 mls @ 250 mls/hr IVPB Q24H [facility] Last Admin: 01/13/17 00:17 Dose: 250 mls/hr Vancomycin HCl 1 gm/ Sodium (Chloride) 250 mls @ 166.7 mls/hr IVPB Q24H [facility] Last Admin: 01/13/17 00:17 Dose: 166.7 mls/hr Piperacillin Sod/Tazobactam Sod (Zosyn 2.25 Gm Iv Premix) 2.25 gm in 50 mls @ 100 mls/hr IVPB Q8H [facility] Last Admin: 01/13/17 05:32 Dose: 100 mls/hr Ibuprofen (Motrin Tab) 600 mg PO TID PRN PRN Reason: Pain Last Admin: 01/13/17 05:39 Dose: 600 mg Lisinopril (Zestril) 10 mg PO DAILY [facility] Last Admin: 01/12/17 13:10 Dose: 10 mg Mirtazapine (Remeron) 15 mg PO HS [facility] Last Admin: 01/12/17 22:32 Dose: 15 mg Pantoprazole Sodium (Protonix Ec Tab) 20 mg PO DAILY [facility] Last Admin: 01/12/17 10:21 Dose: 20 mg Promethazine HCl (Phenergan Syrup) 6.25 mg PO TID PRN PRN Reason: Cough Last Admin: 01/13/17 05:31 Dose: 6.25 mg Quetiapine Fumarate (Seroquel) 50 mg PO [facility] Last Admin: 01/12/17 22:33 Dose: 50 mg Rosuvastatin Calcium (Crestor) 20 mg PO HS [facility] Last Admin: 01/12/17 22:34 Dose: 20 mg Saccharomyces Boulardii (Florastor) 250 mg PO BID [facility] Last Admin: 01/12/17 17:34 Dose: 250 mg Physical Exam - Constitutional Appears: Non-toxic - Head Exam Head Exam: NORMAL INSPECTION - Eye Exam Eye Exam: Normal appearance - ENT Exam ENT Exam: Mucous Membranes Moist - Neck Exam Neck exam: Positive for: Full Rom - Respiratory Exam Respiratory Exam: NORMAL BREATHING PATTERN - Cardiovascular Exam Cardiovascular Exam: REGULAR RHYTHM - GI/Abdominal Exam GI & Abdominal Exam: Normal Bowel Sounds - Rectal Exam Rectal Exam: Deferred - Extremities Exam Extremities exam: Positive for: pedal edema - Back Exam Back exam: NORMAL INSPECTION - Neurological Exam Neurological exam: Alert, Oriented x3 - Psychiatric Exam Psychiatric exam: Normal Affect - Skin Skin Exam: Normal Color Results - Vital Signs Recent Vital Signs: Last Vital Signs Temp 99.3 F 01/13/17 07:00 Pulse 85 01/13/17 07:00 Resp 20 01/13/17 07:00 BP 163/92 H 01/13/17 07:00 Pulse Ox 97 01/13/17 07:00 - Labs Result Diagrams: 01/12/17 05:51 01/12/17 05:51 Labs: Laboratory Results - last 24 hr 01/11/17 01/12/17 23:04 05:51 MCV 89.7 Neut % (Auto) 50.0 Lymph % (Auto) 37.0 [place] % (Auto) 10.0 Eos % (Auto) 3.0 Baso % (Auto) 0.0 Neut # 3.4 Lymph # 2.5 [place] # 0.7 Eos # 0.2 Baso # 0.0 ESR 48 H Influenza Typ A,B (EIA) Negative for flu a/b - EKG Data EKG Interpreted by: Myself EKG shows normal: Sinus rhythm Assessment & Plan (1) PAD (peripheral artery disease) Assessment and Plan: recommend to assess for peripehral vascular disease. continue current medications Status: Acute (2) HTN (hypertension) Assessment and Plan: blood pressure control per Dr Broussard Status: Chronic (3) Hypercholesterolemia Assessment and Plan: statin therapy Status: Chronic
[2017-01-13 07:53] LABS: CHLORIDE 109 mmol/L (98-107); POTASSIUM 3.7 mmol/L (3.6-5.2); SODIUM 141 mmol/L (132-148)
[2017-01-13 07:55] LABS: BILIRUBIN,TOTAL 0.3 mg/dL (0.2-1.3); CARBON DIOXIDE 23 mmol/L (22-30); GFR AFRICAN-AMERICAN > 60
[2017-01-13 07:56] LABS: ALB/GLOB RATIO 0.9 (1.0-2.1); ALKALINE PHOSPHATASE 48 U/L (38-126); ALT/SGPT 26 U/L (9-52); AST/SGOT 14 U/L (14-36); BLOOD UREA NITROGEN 8 mg/dL (7-17); CALCIUM 7.8 mg/dl (8.6-10.4); GLUCOSE,RANDOM 112 mg/dL (65-105); PHOSPHOROUS 3.3 mg/dL (2.5-4.5)
[2017-01-13 07:57] LABS: MAGNESIUM 1.6 mg/dL (1.6-2.3)
[2017-01-13] MEDS: Cilostazol 100 mg Tab UD PO SCH ×2 (08:26→17:58)
[2017-01-13] MEDS: Saccharomyces Boulardi 250 mg Cap PO SCH ×2 (10:06→17:59)
--- NOTE | 2017-01-13 13:30 | CP.PCM.PN ---
Subjective - Date & Time of Evaluation Date of Evaluation: 01/13/17 Time of Evaluation: 13:29 - Subjective Subjective: CHIEF COMPLAINTS TODAY : GEN. PAIN ESPM R. LEG ROS. HEENT : N. Resp : No cough, ,pleuritic CP ,or hemoptysis Cardio : No anginal CP, PND, orthopnea, palpitation GI : No abd.pain, n/v ,diarrhea or GI bleeding . UPPER CUTTER OUT : No headache, vertigo, focal deficit. Musculoskel : No joint swelling , Derm : No rash Psych : Normal affect. Ext : No swelling ,calf pain PE. Pt. is alert awake in no distress. V.S As noted in the chart Head ,ear nose,throat and eyes : Normal. Neck : Supple with normal carotids. Lungs: Clear air entry. CREPTS Heart : S1 & S2 normal with S4. No murmur. Abd : Soft non tender with normal bowel sounds. Neuro : Moves all ext. with no localized deficit. Ext : No edema with intact pulses.Non tender calves Derm : No rashes or decubitus ulcer. LABS/RADIOLOGY: ASSESSMENT/PLAN : VASCULAR LOWER EXT EVAL DR. CLAUDIO IV AB CAROTID DOPPLER Objective - Vital Signs/Intake and Output Vital Signs (last 24 hours): Temp Pulse Resp BP Pulse Ox 99.3 F 95 H 20 159/91 H 97 01/13/17 07:00 01/13/17 12:00 01/13/17 07:00 01/13/17 10:04 01/13/17 07:00 Intake and Output: 01/13/17 01/13/17 11:59 23:59 Intake Total 770 Balance 770 - Medications Medications: Current Medications Acetaminophen (Tylenol 325mg Tab) 650 mg PO Q6 PRN PRN Reason: Pain, moderate (4-7) Last Admin: 01/12/17 04:24 Dose: 650 mg Albuterol/Ipratropium (Duoneb 3 Mg/0.5 Mg (3 Ml) Ud) 3 ml INH RQ6 [facility] Last Admin: 01/13/17 07:35 Dose: 3 ml Cilostazol (Pletal) 100 mg PO ACBD [facility] Last Admin: 01/13/17 08:26 Dose: 100 mg Clopidogrel Bisulfate (Plavix) 75 mg PO DAILY [facility] Last Admin: 01/13/17 10:06 Dose: 75 mg Famotidine (Pepcid) 20 mg PO BID [facility] Last Admin: 01/13/17 10:06 Dose: 20 mg Gabapentin (Neurontin) 400 mg PO TID [facility] Last Admin: 01/13/17 10:06 Dose: 400 mg Heparin Sodium (Porcine) (Heparin) 5,000 units SC Q8 [facility] Last Admin: 01/13/17 05:31 Dose: 5,000 units Hydralazine HCl (Apresoline) 50 mg PO TID [facility] Last Admin: 01/13/17 10:06 Dose: 50 mg Azithromycin 500 mg/ Sodium (Chloride) 250 mls @ 250 mls/hr IVPB Q24H [facility] Last Admin: 01/13/17 00:17 Dose: 250 mls/hr Vancomycin HCl 1 gm/ Sodium (Chloride) 250 mls @ 166.7 mls/hr IVPB Q24H [facility] Last Admin: 01/13/17 00:17 Dose: 166.7 mls/hr Piperacillin Sod/Tazobactam Sod (Zosyn 2.25 Gm Iv Premix) 2.25 gm in 50 mls @ 100 mls/hr IVPB Q8H [facility] Last Admin: 01/13/17 05:32 Dose: 100 mls/hr Ibuprofen (Motrin Tab) 600 mg PO TID PRN PRN Reason: Pain Last Admin: 01/13/17 05:39 Dose: 600 mg Lisinopril (Zestril) 10 mg PO DAILY [facility] Last Admin: 01/13/17 10:06 Dose: 10 mg Mirtazapine (Remeron) 15 mg PO [facility] Last Admin: 01/12/17 22:32 Dose: 15 mg Promethazine HCl (Phenergan Syrup) 6.25 mg PO TID PRN PRN Reason: Cough Last Admin: 01/13/17 05:31 Dose: 6.25 mg Quetiapine Fumarate (Seroquel) 50 mg PO [facility] Last Admin: 01/12/17 22:33 Dose: 50 mg Rosuvastatin Calcium (Crestor) 20 mg PO [facility] Last Admin: 01/12/17 22:34 Dose: 20 mg Saccharomyces Boulardii (Florastor) 250 mg PO BID [facility] Last Admin: 01/13/17 10:06 Dose: 250 mg - Labs Labs: 01/13/17 07:26 01/13/17 07:26 PT 10.9 SECONDS (9.7-12.2) 01/10/17 21:02 INR 1.0 01/10/17 21:02 APTT 29 SECONDS (21-34) 01/10/17 21:02
--- NOTE | 2017-01-13 18:05 | CP.PCM.PN ---
Subjective - Date & Time of Evaluation Date of Evaluation: 01/13/17 Time of Evaluation: 18:05 - Subjective Subjective: CHIEF COMPLAINTS TODAY : AFEBRILE, less cough, c/o pain right leg .SEEN BY INTERVENTIONAL CARDIOLOGY. ROS. HEENT : N. Resp : +ve COUGH, wheezing , NO pleuritic CP ,or hemoptysis Cardio : No anginal CP, PND, orthopnea, palpitation GI : No abd.pain, n/v ,diarrhea or GI bleeding . 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 Musculoskel : No joint swelling , Derm : No rash Psych : Normal affect. Ext : No swelling ,calf pain PE. Pt. is alert awake in no distress. V.S As noted in the chart Head ,ear nose,throat and eyes : Normal. Neck : Supple with normal carotids. Lungs: B/L COURSE. CREPTS Heart : S1 & S2 normal with S4. No murmur. Abd : Soft non tender with normal bowel sounds. Neuro : Moves all ext. with no localized deficit. Ext : No edema with intact pulses.Non tender calves Derm : No rashes or decubitus ulcer. LABS/RADIOLOGY: ESR 48 cREATININE 0.8/bun 18 crp> 15.00 Objective - Vital Signs/Intake and Output Vital Signs (last 24 hours): Temp Pulse Resp BP Pulse Ox 98.4 F 88 20 125/69 96 01/13/17 15:19 01/13/17 15:19 01/13/17 15:19 01/13/17 15:19 01/13/17 15:19 Intake and Output: 01/13/17 01/13/17 06:59 18:59 Intake Total 770 450 Balance 770 450 - Medications Medications: Current Medications Acetaminophen (Tylenol 325mg Tab) 650 mg PO Q6 PRN PRN Reason: Pain, moderate (4-7) Last Admin: 01/12/17 04:24 Dose: 650 mg Albuterol/Ipratropium (Duoneb 3 Mg/0.5 Mg (3 Ml) Ud) 3 ml INH RQ6 [facility] Last Admin: 01/13/17 13:42 Dose: 3 ml Cilostazol (Pletal) 100 mg PO ACBD [facility] Last Admin: 01/13/17 17:58 Dose: 100 mg Clopidogrel Bisulfate (Plavix) 75 mg PO DAILY [facility] Last Admin: 01/13/17 10:06 Dose: 75 mg Famotidine (Pepcid) 20 mg PO BID [facility] Last Admin: 01/13/17 10:06 Dose: 20 mg Gabapentin (Neurontin) 400 mg PO TID [facility] Last Admin: 01/13/17 17:58 Dose: 400 mg Heparin Sodium (Porcine) (Heparin) 5,000 units SC Q8 [facility] Last Admin: 01/13/17 14:14 Dose: 5,000 units Hydralazine HCl (Apresoline) 50 mg PO TID [facility] Last Admin: 01/13/17 17:58 Dose: 50 mg Azithromycin 500 mg/ Sodium (Chloride) 250 mls @ 250 mls/hr IVPB Q24H [facility] Last Admin: 01/13/17 00:17 Dose: 250 mls/hr Vancomycin HCl 1 gm/ Sodium (Chloride) 250 mls @ 166.7 mls/hr IVPB Q24H [facility] Last Admin: 01/13/17 00:17 Dose: 166.7 mls/hr Piperacillin Sod/Tazobactam Sod (Zosyn 2.25 Gm Iv Premix) 2.25 gm in 50 mls @ 100 mls/hr IVPB Q8H [facility] Last Admin: 01/13/17 14:17 Dose: 100 mls/hr Ibuprofen (Motrin Tab) 600 mg PO TID PRN PRN Reason: Pain Last Admin: 01/13/17 17:58 Dose: 600 mg Lisinopril (Zestril) 10 mg PO DAILY [facility] Last Admin: 01/13/17 10:06 Dose: 10 mg Mirtazapine (Remeron) 15 mg PO [facility] Last Admin: 01/12/17 22:32 Dose: 15 mg Promethazine HCl (Phenergan Syrup) 6.25 mg PO TID PRN PRN Reason: Cough Last Admin: 01/13/17 14:13 Dose: 6.25 mg Quetiapine Fumarate (Seroquel) 50 mg PO [facility] Last Admin: 01/12/17 22:33 Dose: 50 mg Rosuvastatin Calcium (Crestor) 20 mg PO HS [facility] Last Admin: 01/12/17 22:34 Dose: 20 mg Saccharomyces Boulardii (Florastor) 250 mg PO BID [facility] Last Admin: 01/13/17 17:59 Dose: 250 mg - Labs Labs: 01/13/17 07:26 01/13/17 07:26 PT 10.9 SECONDS (9.7-12.2) 01/10/17 21:02 INR 1.0 01/10/17 21:02 APTT 29 SECONDS (21-34) 01/10/17 21:02 Assessment and Plan (1) Severe sepsis Status: Acute (2) Pneumonia Status: Acute (3) Carotid stenosis, symptomatic w/o infarct Status: Acute (4) Acute renal insufficiency Status: Acute (5) Chronic back pain Status: Acute (6) PAD (peripheral artery disease) Status: Acute - Assessment and Plan (Free Text) Plan: CONTINUE iv zOSYN 2.25 iv PIGGYBACK EVERY 8 HOURLY 01/11/17. CONTINUE iv VANCOMYCIN 1 G EVERY 24 HOURLY TO COVER FOR STAPH AND STREP. . CONTINUE zITHROMAX 500 MG ONCE A DAY DAILY 01/11/17. SPUTUM gRAM STAIN AND CULTURE -P F/U CT CHEST WITH IV CONTRAST R/O PNEUMONIA/LOCULATED EFFUSION. NEBULIZER THERAPY WHEN NECESSARY EVERY 6 HOURLY. VASCULAR WORKUP IN PROGRESS PER INTERVENTIONAL CARDIOLOGY.
[2017-01-14] MEDS: Albuterol-Ipratrop 3 mg / 0.5 (3 ml) UD INH SCH ×4 (01:10→20:06)
[2017-01-14] MEDS: Piperacill/Tazo 2.25gm in Dex 2.25 GM/50 ML BAG IVPB SCH ×3 (05:04→21:26)
[2017-01-14 06:30] LABS: BASO # 0.1 K/uL (0.0-0.2); BASO % 0.8 % (0.0-2.0); EOS # 0.3 K/uL (0.0-0.7); EOS % 3.4 % (0.0-4.0); HEMATOCRIT 31.2 % (34.0-47.0); LYMPH # 2.2 K/uL (1.0-4.3); LYMPH % 29.2 % (20.0-40.0); MEAN CELL VOLUME 89.4 fL (81.0-99.0); MEAN CORPUSCULAR HEMOGLOBIN 29.7 pg (27.0-31.0); MEAN CORPUSCULAR HGB CONC 33.2 g/dL (33.0-37.0); MEAN PLATELET VOLUME 9.1 fL (7.2-11.7); RED CELL DISTRIBUTION WIDTH 15.7 % (11.5-14.5); WHITE BLOOD COUNT 7.6 K/uL (4.8-10.8)
[2017-01-14 07:36] LABS: CHLORIDE 106 mmol/L (98-107)
[2017-01-14 07:37] LABS: POTASSIUM 3.7 mmol/L (3.6-5.2); SODIUM 141 mmol/L (132-148)
[2017-01-14 07:39] LABS: ALB/GLOB RATIO 0.9 (1.0-2.1); AST/SGOT 24 U/L (14-36); BILIRUBIN,TOTAL 0.4 mg/dL (0.2-1.3); CARBON DIOXIDE 26 mmol/L (22-30); GFR AFRICAN-AMERICAN > 60; TOTAL PROTEIN 6.5 g/dL (6.3-8.3)
[2017-01-14 07:40] LABS: ALKALINE PHOSPHATASE 47 U/L (38-126); ALT/SGPT 29 U/L (9-52); BLOOD UREA NITROGEN 7 mg/dL (7-17); GLUCOSE,RANDOM 99 mg/dL (65-105); MAGNESIUM 1.8 mg/dL (1.6-2.3); PHOSPHOROUS 4.5 mg/dL (2.5-4.5)
[2017-01-14] MEDS: Cilostazol 100 mg Tab UD PO SCH ×2 (08:06→15:45)
[2017-01-14] MEDS: Saccharomyces Boulardi 250 mg Cap PO SCH ×2 (09:59→17:59)
[2017-01-14] MEDS: Promethazine 6.25 MG/5 ML CUP PO PRN ×2 (09:59→18:00)
[2017-01-14] MEDS ORDERED: Iohexol 350mg/ml 100 ML ONE (10:42)
[2017-01-14 10:59] LABS: H INFLUENZAE B NOT REQUIRED (NEGATIVE); N MENINGITIS ACY/W135 NOT REQUIRED (NEGATIVE); N MENINGITIS B/ECOLI K1 NOT REQUIRED (NEGATIVE)
--- NOTE | 2017-01-14 11:24 | CP.PCM.PN ---
Subjective - Date & Time of Evaluation Date of Evaluation: 01/14/17 Time of Evaluation: 11:15 - Subjective Subjective: patient is off the floor for CT scan of the chest. Arterial duplex reveals patent stent in the LSFA, atherocsclerosis with high velocity flow in the proximal SFA (awaiting official report). Recommend continued antiplatelet therapy, cilostazol while currently undergoing antibiotic therapy for pneumonia. will discuss further treatment plan with patient. Objective - Vital Signs/Intake and Output Vital Signs (last 24 hours): Temp Pulse Resp BP Pulse Ox 98.3 F 99 H 20 133/75 96 01/14/17 07:00 01/14/17 08:00 01/14/17 07:00 01/14/17 07:00 01/14/17 07:00 Intake and Output: 01/14/17 01/14/17 06:59 18:59 Intake Total 570 Balance 570 - Medications Medications: Current Medications Acetaminophen (Tylenol 325mg Tab) 650 mg PO Q6 PRN PRN Reason: Pain, moderate (4-7) Last Admin: 01/12/17 04:24 Dose: 650 mg Albuterol/Ipratropium (Duoneb 3 Mg/0.5 Mg (3 Ml) Ud) 3 ml INH RQ6 [facility] Last Admin: 01/14/17 07:44 Dose: 3 ml Cilostazol (Pletal) 100 mg PO ACBD [facility] Last Admin: 01/14/17 08:06 Dose: 100 mg Clopidogrel Bisulfate (Plavix) 75 mg PO DAILY [facility] Last Admin: 01/14/17 09:59 Dose: 75 mg Famotidine (Pepcid) 20 mg PO BID [facility] Last Admin: 01/14/17 09:59 Dose: 20 mg Gabapentin (Neurontin) 400 mg PO TID [facility] Last Admin: 01/14/17 09:59 Dose: 400 mg Hydralazine HCl (Apresoline) 50 mg PO TID [facility] Last Admin: 01/14/17 09:59 Dose: 50 mg Azithromycin 500 mg/ Sodium (Chloride) 250 mls @ 250 mls/hr IVPB Q24H [facility] Last Admin: 01/13/17 23:59 Dose: 250 mls/hr Vancomycin HCl 1 gm/ Sodium (Chloride) 250 mls @ 166.7 mls/hr IVPB Q24H [facility] Last Admin: 01/13/17 23:58 Dose: 166.7 mls/hr Piperacillin Sod/Tazobactam Sod (Zosyn 2.25 Gm Iv Premix) 2.25 gm in 50 mls @ 100 mls/hr IVPB Q8H [facility] Last Admin: 01/14/17 05:04 Dose: 100 mls/hr Ibuprofen (Motrin Tab) 600 mg PO TID PRN PRN Reason: Pain Last Admin: 01/13/17 17:58 Dose: 600 mg Lisinopril (Zestril) 10 mg PO DAILY [facility] Last Admin: 01/14/17 09:59 Dose: 10 mg Mirtazapine (Remeron) 15 mg PO HS [facility] Last Admin: 01/13/17 22:35 Dose: 15 mg Promethazine HCl (Phenergan Syrup) 6.25 mg PO TID PRN PRN Reason: Cough Last Admin: 01/14/17 09:59 Dose: 6.25 mg Quetiapine Fumarate (Seroquel) 50 mg PO HS [facility] Last Admin: 01/13/17 22:35 Dose: 50 mg Rosuvastatin Calcium (Crestor) 20 mg PO HS [facility] Last Admin: 01/13/17 22:35 Dose: 20 mg Saccharomyces Boulardii (Florastor) 250 mg PO BID [facility] Last Admin: 01/14/17 09:59 Dose: 250 mg - Labs Labs: 01/14/17 06:21 01/14/17 06:21 PT 10.9 SECONDS (9.7-12.2) 01/10/17 21:02 INR 1.0 01/10/17 21:02 APTT 29 SECONDS (21-34) 01/10/17 21:02 Assessment and Plan (1) PAD (peripheral artery disease) Status: Acute (2) HTN (hypertension) Status: Chronic (3) Hypercholesterolemia Status: Chronic
--- NOTE | 2017-01-14 14:06 | CP.PCM.PN ---
Subjective - Date & Time of Evaluation Date of Evaluation: 01/14/17 Time of Evaluation: 14:06 - Subjective Subjective: CHIEF COMPLAINTS TODAY : GEN. PAIN ESPM R. LEG ROS. HEENT : N. Resp : No cough, ,pleuritic CP ,or hemoptysis Cardio : No anginal CP, PND, orthopnea, palpitation GI : No abd.pain, n/v ,diarrhea or GI bleeding . 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 Musculoskel : No joint swelling , Derm : No rash Psych : Normal affect. Ext : No swelling ,calf pain PE. Pt. is alert awake in no distress. V.S As noted in the chart Head ,ear nose,throat and eyes : Normal. Neck : Supple with normal carotids. Lungs: Clear air entry. CREPTS Heart : S1 & S2 normal with S4. No murmur. Abd : Soft non tender with normal bowel sounds. Neuro : Moves all ext. with no localized deficit. Ext : No edema with intact pulses.Non tender calves Derm : No rashes or decubitus ulcer. LABS/RADIOLOGY: ASSESSMENT/PLAN : VASCULAR LOWER EXT EVAL DR. CLAUDIO IV AB CAROTID DOPPLER Objective - Vital Signs/Intake and Output Vital Signs (last 24 hours): Temp Pulse Resp BP Pulse Ox 98.3 F 99 H 20 133/75 96 01/14/17 07:00 01/14/17 08:00 01/14/17 07:00 01/14/17 07:00 01/14/17 07:00 Intake and Output: 01/14/17 01/14/17 11:59 23:59 Intake Total 570 Balance 570 - Medications Medications: Current Medications Acetaminophen (Tylenol 325mg Tab) 650 mg PO Q6 PRN PRN Reason: Pain, moderate (4-7) Last Admin: 01/12/17 04:24 Dose: 650 mg Albuterol/Ipratropium (Duoneb 3 Mg/0.5 Mg (3 Ml) Ud) 3 ml INH RQ6 [facility] Last Admin: 01/14/17 07:44 Dose: 3 ml Cilostazol (Pletal) 100 mg PO ACBD [facility] Last Admin: 01/14/17 08:06 Dose: 100 mg Clopidogrel Bisulfate (Plavix) 75 mg PO DAILY [facility] Last Admin: 01/14/17 09:59 Dose: 75 mg Famotidine (Pepcid) 20 mg PO BID [facility] Last Admin: 01/14/17 09:59 Dose: 20 mg Gabapentin (Neurontin) 400 mg PO TID [facility] Last Admin: 01/14/17 13:17 Dose: 400 mg Hydralazine HCl (Apresoline) 50 mg PO TID [facility] Last Admin: 01/14/17 13:17 Dose: 50 mg Azithromycin 500 mg/ Sodium (Chloride) 250 mls @ 250 mls/hr IVPB Q24H [facility] Last Admin: 01/13/17 23:59 Dose: 250 mls/hr Vancomycin HCl 1 gm/ Sodium (Chloride) 250 mls @ 166.7 mls/hr IVPB Q24H [facility] Last Admin: 01/13/17 23:58 Dose: 166.7 mls/hr Piperacillin Sod/Tazobactam Sod (Zosyn 2.25 Gm Iv Premix) 2.25 gm in 50 mls @ 100 mls/hr IVPB Q8H [facility] Last Admin: 01/14/17 13:47 Dose: 100 mls/hr Ibuprofen (Motrin Tab) 600 mg PO TID PRN PRN Reason: Pain Last Admin: 01/13/17 17:58 Dose: 600 mg Lisinopril (Zestril) 10 mg PO DAILY [facility] Last Admin: 01/14/17 09:59 Dose: 10 mg Mirtazapine (Remeron) 15 mg PO [facility] Last Admin: 01/13/17 22:35 Dose: 15 mg Promethazine HCl (Phenergan Syrup) 6.25 mg PO TID PRN PRN Reason: Cough Last Admin: 01/14/17 09:59 Dose: 6.25 mg Quetiapine Fumarate (Seroquel) 50 mg PO HS [facility] Last Admin: 01/13/17 22:35 Dose: 50 mg Rosuvastatin Calcium (Crestor) 20 mg PO HS [facility] Last Admin: 01/13/17 22:35 Dose: 20 mg Saccharomyces Boulardii (Florastor) 250 mg PO BID [facility] Last Admin: 01/14/17 09:59 Dose: 250 mg - Labs Labs: 01/14/17 06:21 01/14/17 06:21 PT 10.9 SECONDS (9.7-12.2) 01/10/17 21:02 INR 1.0 01/10/17 21:02 APTT 29 SECONDS (21-34) 01/10/17 21:02
--- NOTE | 2017-01-14 23:08 | CP.PCM.PN ---
Subjective - Date & Time of Evaluation Date of Evaluation: 01/14/17 Time of Evaluation: 23:08 - Subjective Subjective: CHIEF COMPLAINTS TODAY : AFEBRILE, less cough, c/o pain right leg .SEEN BY INTERVENTIONAL CARDIOLOGY. ROS. HEENT : N. Resp : +ve COUGH, wheezing , NO pleuritic CP ,or hemoptysis Cardio : No anginal CP, PND, orthopnea, palpitation GI : No abd.pain, n/v ,diarrhea or GI bleeding . SEARCH LEAD : No headache, vertigo, focal deficit. Musculoskel : No joint swelling , Derm : No rash Psych : Normal affect. Ext : No swelling ,calf pain PE. Pt. is alert awake in no distress. V.S As noted in the chart Head ,ear nose,throat and eyes : Normal. Neck : Supple with normal carotids. Lungs: B/L COURSE. CREPTS Heart : S1 & S2 normal with S4. No murmur. Abd : Soft non tender with normal bowel sounds. Neuro : Moves all ext. with no localized deficit. Ext : No edema with intact pulses.Non tender calves Derm : No rashes or decubitus ulcer. LABS/RADIOLOGY: MRSA SCREEN NEGATIVE ESR 48 CREATININE 0.8/bun 18 crp> 15.00 Objective - Vital Signs/Intake and Output Vital Signs (last 24 hours): Temp Pulse Resp BP Pulse Ox 98.4 F 98 H 20 117/71 96 01/14/17 15:05 01/14/17 16:00 01/14/17 15:05 01/14/17 15:05 01/14/17 15:05 - Medications Medications: Current Medications Acetaminophen (Tylenol 325mg Tab) 650 mg PO Q6 PRN PRN Reason: Pain, moderate (4-7) Last Admin: 01/12/17 04:24 Dose: 650 mg Albuterol/Ipratropium (Duoneb 3 Mg/0.5 Mg (3 Ml) Ud) 3 ml INH RQ6 [facility] Last Admin: 01/14/17 20:06 Dose: 3 ml Cilostazol (Pletal) 100 mg PO ACBD [facility] Last Admin: 01/14/17 15:45 Dose: 100 mg Clopidogrel Bisulfate (Plavix) 75 mg PO DAILY [facility] Last Admin: 01/14/17 09:59 Dose: 75 mg Famotidine (Pepcid) 20 mg PO BID [facility] Last Admin: 01/14/17 17:59 Dose: 20 mg Gabapentin (Neurontin) 400 mg PO TID [facility] Last Admin: 01/14/17 17:59 Dose: 400 mg Hydralazine HCl (Apresoline) 50 mg PO TID [facility] Last Admin: 01/14/17 17:59 Dose: 50 mg Azithromycin 500 mg/ Sodium (Chloride) 250 mls @ 250 mls/hr IVPB Q24H [facility] Last Admin: 01/13/17 23:59 Dose: 250 mls/hr Vancomycin HCl 1 gm/ Sodium (Chloride) 250 mls @ 166.7 mls/hr IVPB Q24H [facility] Last Admin: 01/13/17 23:58 Dose: 166.7 mls/hr Piperacillin Sod/Tazobactam Sod (Zosyn 2.25 Gm Iv Premix) 2.25 gm in 50 mls @ 100 mls/hr IVPB Q8H [facility] Last Admin: 01/14/17 21:26 Dose: 100 mls/hr Ibuprofen (Motrin Tab) 600 mg PO TID PRN PRN Reason: Pain Last Admin: 01/14/17 15:44 Dose: 600 mg Lisinopril (Zestril) 10 mg PO DAILY [facility] Last Admin: 01/14/17 09:59 Dose: 10 mg Mirtazapine (Remeron) 15 mg PO [facility] Last Admin: 01/14/17 21:27 Dose: 15 mg Promethazine HCl (Phenergan Syrup) 6.25 mg PO TID PRN PRN Reason: Cough Last Admin: 01/14/17 18:00 Dose: 6.25 mg Quetiapine Fumarate (Seroquel) 50 mg PO [facility] Last Admin: 01/14/17 21:27 Dose: 50 mg Rosuvastatin Calcium (Crestor) 20 mg PO HS [facility] Last Admin: 01/14/17 21:27 Dose: 20 mg Saccharomyces Boulardii (Florastor) 250 mg PO BID [facility] Last Admin: 01/14/17 17:59 Dose: 250 mg - Labs Labs: 01/14/17 06:21 01/14/17 06:21 PT 10.9 SECONDS (9.7-12.2) 01/10/17 21:02 INR 1.0 01/10/17 21:02 APTT 29 SECONDS (21-34) 01/10/17 21:02 Assessment and Plan (1) Severe sepsis Status: Acute (2) Pneumonia Status: Acute (3) Carotid stenosis, symptomatic w/o infarct Status: Acute (4) Acute renal insufficiency Status: Acute (5) Chronic back pain Status: Acute (6) PAD (peripheral artery disease) Status: Acute - Assessment and Plan (Free Text) Assessment: CONTINUE iv zOSYN 2.25 iv PIGGYBACK EVERY 8 HOURLY 01/11/17. CONTINUE iv VANCOMYCIN 1 G EVERY 24 HOURLY TO COVER FOR STAPH AND STREP. . CONTINUE zITHROMAX 500 MG ONCE A DAY DAILY 01/11/17. SPUTUM gRAM STAIN AND CULTURE -P F/U CT CHEST WITH IV CONTRAST R/O PNEUMONIA/LOCULATED EFFUSION- PENDING. NEBULIZER THERAPY WHEN NECESSARY EVERY 6 HOURLY. VASCULAR WORKUP IN PROGRESS PER INTERVENTIONAL CARDIOLOGY.
[2017-01-14] MEDS: Azithromycin 500 MG in Sodium Chloride 0.9% 250 ML IVPB SCH (23:26)
[2017-01-15] MEDS: Albuterol-Ipratrop 3 mg / 0.5 (3 ml) UD INH SCH ×4 (01:28→20:23)
[2017-01-15] MEDS: Piperacill/Tazo 2.25gm in Dex 2.25 GM/50 ML BAG IVPB SCH ×3 (05:13→21:36)
[2017-01-15] MEDS: Promethazine 6.25 MG/5 ML CUP PO PRN ×3 (05:13→21:39)
--- NOTE | 2017-01-15 07:10 | CP.PCM.PN ---
Subjective - Date & Time of Evaluation Date of Evaluation: 01/15/17 Time of Evaluation: 07:00 - Subjective Subjective: patient has no current lower extremity pain. She ambulated yesterday. Objective - Vital Signs/Intake and Output Vital Signs (last 24 hours): Temp Pulse Resp BP Pulse Ox 98.2 F 97 H 20 117/58 L 97 01/14/17 23:05 01/14/17 23:05 01/14/17 23:05 01/14/17 23:05 01/14/17 23:05 Intake and Output: 01/15/17 01/15/17 06:59 18:59 Intake Total 670 Balance 670 - Medications Medications: Current Medications Acetaminophen (Tylenol 325mg Tab) 650 mg PO Q6 PRN PRN Reason: Pain, moderate (4-7) Last Admin: 01/12/17 04:24 Dose: 650 mg Albuterol/Ipratropium (Duoneb 3 Mg/0.5 Mg (3 Ml) Ud) 3 ml INH RQ6 [facility] Last Admin: 01/15/17 01:28 Dose: Not Given Cilostazol (Pletal) 100 mg PO ACBD [facility] Last Admin: 01/14/17 15:45 Dose: 100 mg Clopidogrel Bisulfate (Plavix) 75 mg PO DAILY [facility] Last Admin: 01/14/17 09:59 Dose: 75 mg Famotidine (Pepcid) 20 mg PO BID [facility] Last Admin: 01/14/17 17:59 Dose: 20 mg Gabapentin (Neurontin) 400 mg PO TID [facility] Last Admin: 01/14/17 17:59 Dose: 400 mg Hydralazine HCl (Apresoline) 50 mg PO TID [facility] Last Admin: 01/14/17 17:59 Dose: 50 mg Azithromycin 500 mg/ Sodium (Chloride) 250 mls @ 250 mls/hr IVPB Q24H [facility] Last Admin: 01/14/17 23:26 Dose: 100 mls/hr Vancomycin HCl 1 gm/ Sodium (Chloride) 250 mls @ 166.7 mls/hr IVPB Q24H [facility] Last Admin: 01/15/17 05:13 Dose: 166.7 mls/hr Piperacillin Sod/Tazobactam Sod (Zosyn 2.25 Gm Iv Premix) 2.25 gm in 50 mls @ 100 mls/hr IVPB Q8H [facility] Last Admin: 01/15/17 05:13 Dose: 100 mls/hr Ibuprofen (Motrin Tab) 600 mg PO TID PRN PRN Reason: Pain Last Admin: 01/15/17 05:12 Dose: 600 mg Lisinopril (Zestril) 10 mg PO DAILY [facility] Last Admin: 01/14/17 09:59 Dose: 10 mg Mirtazapine (Remeron) 15 mg PO HS [facility] Last Admin: 01/14/17 21:27 Dose: 15 mg Promethazine HCl (Phenergan Syrup) 6.25 mg PO TID PRN PRN Reason: Cough Last Admin: 01/15/17 05:13 Dose: 6.25 mg Quetiapine Fumarate (Seroquel) 50 mg PO HS [facility] Last Admin: 01/14/17 21:27 Dose: 50 mg Rosuvastatin Calcium (Crestor) 20 mg PO HS [facility] Last Admin: 01/14/17 21:27 Dose: 20 mg Saccharomyces Boulardii (Florastor) 250 mg PO BID [facility] Last Admin: 01/14/17 17:59 Dose: 250 mg - Labs Labs: 01/14/17 06:21 01/14/17 06:21 PT 10.9 SECONDS (9.7-12.2) 01/10/17 21:02 INR 1.0 01/10/17 21:02 APTT 29 SECONDS (21-34) 01/10/17 21:02 - Constitutional Appears: Non-toxic - Head Exam Head Exam: NORMAL INSPECTION - Eye Exam Eye Exam: Normal appearance - ENT Exam ENT Exam: Mucous Membranes Moist - Neck Exam Neck Exam: Full ROM - Respiratory Exam Respiratory Exam: NORMAL BREATHING PATTERN - Cardiovascular Exam Cardiovascular Exam: REGULAR RHYTHM - GI/Abdominal Exam GI & Abdominal Exam: Normal Bowel Sounds - Rectal Exam Rectal Exam: Deferred - Extremities Exam Extremities Exam: absent: Pedal Edema - Back Exam Back Exam: NORMAL INSPECTION - Neurological Exam Neurological Exam: Alert - Psychiatric Exam Psychiatric exam: Normal Affect - Skin Skin Exam: Normal Color Assessment and Plan (1) PAD (peripheral artery disease) Assessment & Plan: awaiting official report. recommend medical tehrapy with antiplatelet agents and Pletal. Patient encouraged to continue ambulation. no immediate intervention. Status: Acute (2) HTN (hypertension) Status: Chronic (3) Hypercholesterolemia Status: Chronic
[2017-01-15] MEDS: Cilostazol 100 mg Tab UD PO SCH ×2 (07:59→17:51)
[2017-01-15] MEDS: Saccharomyces Boulardi 250 mg Cap PO SCH ×2 (09:44→17:51)
--- NOTE | 2017-01-15 13:47 | CP.PCM.PN ---
Subjective - Date & Time of Evaluation Date of Evaluation: 01/15/17 Time of Evaluation: 13:46 - Subjective Subjective: CHIEF COMPLAINTS TODAY : WHEEZING P ROS. HEENT : N. Resp : No cough, ,pleuritic CP ,or hemoptysis Cardio : No anginal CP, PND, orthopnea, palpitation GI : No abd.pain, n/v ,diarrhea or GI bleeding . FLIGHT PURSER : No headache, vertigo, focal deficit. Musculoskel : No joint swelling , Derm : No rash Psych : Normal affect. Ext : No swelling ,calf pain PE. Pt. is alert awake in no distress. V.S As noted in the chart Head ,ear nose,throat and eyes : Normal. Neck : Supple with normal carotids. Lungs: Clear air entry. CREPTS Heart : S1 & S2 normal with S4. No murmur. Abd : Soft non tender with normal bowel sounds. Neuro : Moves all ext. with no localized deficit. Ext : No edema with intact pulses.Non tender calves Derm : No rashes or decubitus ulcer. LABS/RADIOLOGY: ASSESSMENT/PLAN : VASCULAR LOWER EXT EVAL DR. CLAUDIO IV AB CAROTID DOPPLER PENDING Objective - Vital Signs/Intake and Output Vital Signs (last 24 hours): Temp Pulse Resp BP Pulse Ox 98.0 F 94 H 20 120/80 97 01/15/17 07:10 01/15/17 08:00 01/15/17 07:10 01/15/17 07:10 01/15/17 07:10 Intake and Output: 01/15/17 01/15/17 11:59 23:59 Intake Total 670 Balance 670 - Medications Medications: Current Medications Acetaminophen (Tylenol 325mg Tab) 650 mg PO Q6 PRN PRN Reason: Pain, moderate (4-7) Last Admin: 01/12/17 04:24 Dose: 650 mg Albuterol/Ipratropium (Duoneb 3 Mg/0.5 Mg (3 Ml) Ud) 3 ml INH RQ6 [facility] Last Admin: 01/15/17 07:37 Dose: 3 ml Cilostazol (Pletal) 100 mg PO ACBD [facility] Last Admin: 01/15/17 07:59 Dose: 100 mg Clopidogrel Bisulfate (Plavix) 75 mg PO DAILY [facility] Last Admin: 01/15/17 09:45 Dose: 75 mg Famotidine (Pepcid) 20 mg PO BID [facility] Last Admin: 01/15/17 09:45 Dose: 20 mg Gabapentin (Neurontin) 400 mg PO TID [facility] Last Admin: 01/15/17 13:21 Dose: 400 mg Hydralazine HCl (Apresoline) 50 mg PO TID [facility] Last Admin: 01/15/17 13:21 Dose: 50 mg Azithromycin 500 mg/ Sodium (Chloride) 250 mls @ 250 mls/hr IVPB Q24H [facility] Last Admin: 01/14/17 23:26 Dose: 100 mls/hr Vancomycin HCl 1 gm/ Sodium (Chloride) 250 mls @ 166.7 mls/hr IVPB Q24H [facility] Last Admin: 01/15/17 05:13 Dose: 166.7 mls/hr Piperacillin Sod/Tazobactam Sod (Zosyn 2.25 Gm Iv Premix) 2.25 gm in 50 mls @ 100 mls/hr IVPB Q8H [facility] Last Admin: 01/15/17 13:21 Dose: 100 mls/hr Ibuprofen (Motrin Tab) 600 mg PO TID PRN PRN Reason: Pain Last Admin: 01/15/17 05:12 Dose: 600 mg Lisinopril (Zestril) 10 mg PO DAILY [facility] Last Admin: 01/15/17 09:46 Dose: 10 mg Mirtazapine (Remeron) 15 mg PO [facility] Last Admin: 01/14/17 21:27 Dose: 15 mg Promethazine HCl (Phenergan Syrup) 6.25 mg PO TID PRN PRN Reason: Cough Last Admin: 01/15/17 05:13 Dose: 6.25 mg Quetiapine Fumarate (Seroquel) 50 mg PO [facility] Last Admin: 01/14/17 21:27 Dose: 50 mg Rosuvastatin Calcium (Crestor) 20 mg PO [facility] Last Admin: 01/14/17 21:27 Dose: 20 mg Saccharomyces Boulardii (Florastor) 250 mg PO BID [facility] Last Admin: 01/15/17 09:44 Dose: 250 mg - Labs Labs: 01/14/17 06:21 01/14/17 06:21 PT 10.9 SECONDS (9.7-12.2) 01/10/17 21:02 INR 1.0 01/10/17 21:02 APTT 29 SECONDS (21-34) 01/10/17 21:02
--- NOTE | 2017-01-15 14:33 | VASCLAB ---
PROCEDURE: HISTORY: claudication, L SFA stent COMPARISON: None available. TECHNIQUE: Grayscale and duplex Doppler evaluation of the bilateral common femoral, femoral, profunda femoral, popliteal, posterior tibial, anterior tibial and dorsalis pedis arteries was performed. Report prepared by Joe Melendez, BS, RVT FINDINGS: RIGHT LOWER EXTREMITY: * Common Femoral Artery: Peak Systolic Velocity - 158: Doppler Waveform: Triphasic.: Plaque description - Calcific * Profunda Femoral Artery: Peak Systolic Velocity - 378: Doppler Waveform: Triphasic.: Plaque description - Calcific * Femoral Artery o Proximal Segment: Peak Systolic Velocity - 361: Doppler Waveform: Triphasic.: Plaque description - Calcific o Middle Segment: Peak Systolic Velocity - 125: Doppler Waveform: Triphasic.: Plaque description - Calcific o Distal Segment: Peak Systolic Velocity - 101: Doppler Waveform: Triphasic.: Plaque description - Calcific * Popliteal Artery o Proximal Segment: Peak Systolic Velocity - 122: Doppler Waveform: Triphasic.: Plaque description - Calcific o Middle Segment: Peak Systolic Velocity - 88: Doppler Waveform: Triphasic.: Plaque description - Calcific o Distal Segment: Peak Systolic Velocity - 105: Doppler Waveform: Triphasic.: Plaque description - Calcific * Posterior Tibial Artery: Peak Systolic Velocity - 77: Doppler Waveform: Triphasic.: Plaque description - Calcific * Anterior Tibial Artery: Peak Systolic Velocity - 100: Doppler Waveform: Triphasic.: Plaque description - Calcific * Dorsalis Pedis Artery: Peak Systolic Velocity - 111: Doppler Waveform: Triphasic.: Plaque description - Calcific LEFT LOWER EXTREMITY: * Common Femoral Artery: Peak Systolic Velocity - 166: Doppler Waveform: Triphasic.: Plaque description - Calcific * Profunda Femoral Artery: Peak Systolic Velocity - 221: Doppler Waveform: Triphasic.: Plaque description - Calcific * Femoral Artery o Proximal Segment: Peak Systolic Velocity - 201: Doppler Waveform: Triphasic.: Plaque description - Calcific o Middle Segment: Peak Systolic Velocity - 157: Doppler Waveform: Triphasic.: Plaque description - Calcific o Distal Segment: Peak Systolic Velocity - 110: Doppler Waveform: Triphasic.: Plaque description - Calcific * Popliteal Artery o Proximal Segment: Peak Systolic Velocity - 79: Doppler Waveform: Triphasic.: Plaque description - Calcific o Middle Segment: Peak Systolic Velocity - 60: Doppler Waveform: Triphasic.: Plaque description - Calcific o Distal Segment: Peak Systolic Velocity - 81: Doppler Waveform: Triphasic.: Plaque description - Calcific * Posterior Tibial Artery: Peak Systolic Velocity - 0: Doppler Waveform: Absent: Plaque description - Calcific * Anterior Tibial Artery: Peak Systolic Velocity - 110: Doppler Waveform: Triphasic.: Plaque description - Calcific * Dorsalis Pedis Artery: Peak Systolic Velocity - 72: Doppler Waveform: Triphasic.: Plaque description - Calcific OTHER FINDINGS: Technically difficult study due to severe arterial wall calcification. IMPRESSION: RIGHT: 50-75% stenosis of the right proximal profunda and proximal superficial femoral arteries. LEFT: 50-75% stenosis of the left proximal profunda femoral and proximal superficial femoral arteries. 30-49% stenosis of the left common femoral artery.
--- NOTE | 2017-01-15 14:33 | VASCLAB ---
PROCEDURE: HISTORY: TIA, LEFT ICA STENT COMPARISON: None available. TECHNIQUE: Grayscale and duplex Doppler evaluation of the cervical carotid and vertebral arteries were performed. The common carotid, carotid bifurcations and cervical Internal Carotid Artery (ICA) and proximal External Carotid Artery (ECA) were evaluated. The vertebral arteries were evaluated for gross patency and flow direction. Report prepared by Joe Melendez, BS, RVT FINDINGS: RIGHT CAROTID ARTERIES: 1. Common Carotid Artery: No significant focal plaque formation of the right common carotid artery. Maximum Peak Systolic velocity: 67 cm/sec: End-diastolic velocity 14 cm/sec. 2. Carotid Bifurcation: Calcific plaque formation. Maximum Peak Systolic velocity: 56 cm/sec: End-diastolic velocity 19 cm/sec. 3. Internal Carotid Artery: Severe plaque formation of the right proximal ICA which results in a hemodynamically significant stenosis. Plaque description: Calcific 3.1. Proximal Segment: Peak systolic velocity 177 cm/sec: End-diastolic velocity 68 cm/sec - % stenosis 60-70% 3.2. Middle Segment: Peak systolic velocity 118 cm/sec: End-diastolic velocity 51 cm/sec - % stenosis 16-49% 3.3. Distal Segment: Peak systolic velocity 83 cm/sec: End-diastolic velocity 32 cm/sec - % stenosis 0-15% 4. External Carotid Artery: No significant focal plaque formation. Peak systolic velocity 187 cm/sec 5. ICA/CCA Ratio: 2.7 LEFT CAROTID ARTERIES: 1. Common Carotid Artery: No significant focal plaque formation of the left common carotid artery. Maximum Peak Systolic velocity: 107 cm/sec: End-diastolic velocity 26 cm/sec. 2. Carotid Bifurcation: Calcific plaque formation. Maximum Peak Systolic velocity: 79 cm/sec: End-diastolic velocity 22 cm/sec. 3. Internal Carotid Artery: Moderate plaque formation of the left proximal ICA which does not results in hemodynamically significant stenosis. Plaque description: Calcific 3.1. Proximal Segment: Peak systolic velocity 91 cm/sec: End-diastolic velocity 28 cm/sec - % stenosis 0-15% 3.2. Middle Segment: Peak systolic velocity 76 cm/sec: End-diastolic velocity 26 cm/sec - % stenosis 0-15% 3.3. Distal Segment: Peak systolic velocity 81 cm/sec: End-diastolic velocity 31 cm/sec - % stenosis 0-15% 4. External Carotid Artery: No significant focal plaque formation. Peak systolic velocity 248 cm/sec 5. ICA/CCA Ratio: 0.9 VERTEBRAL ARTERIES: 1. Right Vertebral Artery: The right vertebral artery flow direction is antegrade. 2. Left Vertebral Artery: The left vertebral artery flow direction is antegrade. OTHER FINDINGS: 1. Right Brachial Blood pressure: 170 mmHg. 2. Left Brachial Blood pressure: 164 mmHg. IMPRESSION: RIGHT: 60-70% stenosis of the right proximal ICA with moderate hemodynamic significance. LEFT: Duplex scan does not suggest hemodynamically significant stenosis of the left extracranial carotid arteries.
--- NOTE | 2017-01-15 20:49 | CP.PCM.PN ---
Subjective - Date & Time of Evaluation Date of Evaluation: 01/15/17 Time of Evaluation: 20:48 - Subjective Subjective: AFEBRILE, FEELING BETTER. STATES COUGH IS BETTER. RIGHT LEG PAIN IMPROVED AND PATIENT IS AMBULATING SEEN BY INTERVENTIONAL CARDIOLOGY TODAY Objective - Vital Signs/Intake and Output Vital Signs (last 24 hours): Temp Pulse Resp BP Pulse Ox 98.4 F 98 H 20 115/70 96 01/15/17 15:07 01/15/17 15:30 01/15/17 15:07 01/15/17 15:07 01/15/17 15:07 - Medications Medications: Current Medications Acetaminophen (Tylenol 325mg Tab) 650 mg PO Q6 PRN PRN Reason: Pain, moderate (4-7) Last Admin: 01/12/17 04:24 Dose: 650 mg Albuterol/Ipratropium (Duoneb 3 Mg/0.5 Mg (3 Ml) Ud) 3 ml INH RQ6 [facility] Last Admin: 01/15/17 20:23 Dose: 3 ml Cilostazol (Pletal) 100 mg PO ACBD [facility] Last Admin: 01/15/17 17:51 Dose: 100 mg Clopidogrel Bisulfate (Plavix) 75 mg PO DAILY [facility] Last Admin: 01/15/17 09:45 Dose: 75 mg Famotidine (Pepcid) 20 mg PO BID [facility] Last Admin: 01/15/17 17:50 Dose: 20 mg Gabapentin (Neurontin) 400 mg PO TID [facility] Last Admin: 01/15/17 17:50 Dose: 400 mg Hydralazine HCl (Apresoline) 50 mg PO TID [facility] Last Admin: 01/15/17 17:51 Dose: 50 mg Azithromycin 500 mg/ Sodium (Chloride) 250 mls @ 250 mls/hr IVPB Q24H [facility] Last Admin: 01/14/17 23:26 Dose: 100 mls/hr Vancomycin HCl 1 gm/ Sodium (Chloride) 250 mls @ 166.7 mls/hr IVPB Q24H [facility] Last Admin: 01/15/17 05:13 Dose: 166.7 mls/hr Piperacillin Sod/Tazobactam Sod (Zosyn 2.25 Gm Iv Premix) 2.25 gm in 50 mls @ 100 mls/hr IVPB Q8H [facility] Last Admin: 01/15/17 13:21 Dose: 100 mls/hr Ibuprofen (Motrin Tab) 600 mg PO TID PRN PRN Reason: Pain Last Admin: 01/15/17 05:12 Dose: 600 mg Lisinopril (Zestril) 10 mg PO DAILY [facility] Last Admin: 01/15/17 09:46 Dose: 10 mg Mirtazapine (Remeron) 15 mg PO HS [facility] Last Admin: 01/14/17 21:27 Dose: 15 mg Promethazine HCl (Phenergan Syrup) 6.25 mg PO TID PRN PRN Reason: Cough Last Admin: 01/15/17 16:41 Dose: 6.25 mg Quetiapine Fumarate (Seroquel) 50 mg PO HS [facility] Last Admin: 01/14/17 21:27 Dose: 50 mg Rosuvastatin Calcium (Crestor) 20 mg PO [facility] Last Admin: 01/14/17 21:27 Dose: 20 mg Saccharomyces Boulardii (Florastor) 250 mg PO BID [facility] Last Admin: 01/15/17 17:51 Dose: 250 mg - Labs Labs: 01/14/17 06:21 01/14/17 06:21 PT 10.9 SECONDS (9.7-12.2) 01/10/17 21:02 INR 1.0 01/10/17 21:02 APTT 29 SECONDS (21-34) 01/10/17 21:02 - Constitutional Appears: No Acute Distress - Head Exam Head Exam: NORMAL INSPECTION - Eye Exam Eye Exam: EOMI, PERRL - ENT Exam ENT Exam: Normal Oropharynx - Neck Exam Neck Exam: Normal Inspection - Respiratory Exam Respiratory Exam: Rhonchi (B/L RHONCHI). absent: Wheezes - Cardiovascular Exam Cardiovascular Exam: REGULAR RHYTHM, +S1, +S2 - GI/Abdominal Exam GI & Abdominal Exam: Soft, Normal Bowel Sounds - Extremities Exam Extremities Exam: absent: Calf Tenderness, Pedal Edema - Neurological Exam Neurological Exam: Awake, CN II-XII Intact, Normal Gait, Oriented x3 - Psychiatric Exam Psychiatric exam: Normal Mood - Skin Skin Exam: Normal Color, Warm Assessment and Plan (1) Severe sepsis Status: Acute (2) Pneumonia Status: Acute (3) Carotid stenosis, symptomatic w/o infarct Status: Acute (4) Acute renal insufficiency Status: Acute (5) Chronic back pain Status: Acute (6) PAD (peripheral artery disease) Status: Acute - Assessment and Plan (Free Text) Plan: CONTINUE iv zOSYN 2.25 iv PIGGYBACK EVERY 8 HOURLY 01/11/17. CONTINUE iv VANCOMYCIN 1 G EVERY 24 HOURLY TO COVER FOR STAPH AND STREP. . CONTINUE zITHROMAX 500 MG ONCE A DAY DAILY 01/11/17. SPUTUM gRAM STAIN AND CULTURE - P. F/U CT CHEST WITH IV CONTRAST R/O PNEUMONIA/LOCULATED EFFUSION- PENDING RESULTS. cHEST X-RAY DONE TODAY -PENDING RESULTS NEBULIZER THERAPY WHEN NECESSARY EVERY 6 HOURLY. PATIENT ANXIOUS TO GO HOME. wE'LL TRY TO GET RESULTS OF X-RAY AND ct CHEST.
[2017-01-16] MEDS: Azithromycin 500 MG in Sodium Chloride 0.9% 250 ML IVPB SCH (00:12)
[2017-01-16] MEDS: Albuterol-Ipratrop 3 mg / 0.5 (3 ml) UD INH SCH ×4 (01:10→19:10)
[2017-01-16] MEDS: Piperacill/Tazo 2.25gm in Dex 2.25 GM/50 ML BAG IVPB SCH ×3 (06:24→21:32)
[2017-01-16 07:23] LABS: BASO # 0.1 K/uL (0.0-0.2); BASO % 1.1 % (0.0-2.0); EOS # 0.4 K/uL (0.0-0.7); EOS % 3.9 % (0.0-4.0); LYMPH # 2.8 K/uL (1.0-4.3); LYMPH % 29.4 % (20.0-40.0); MEAN CELL VOLUME 90.9 fL (81.0-99.0); MEAN CORPUSCULAR HEMOGLOBIN 29.8 pg (27.0-31.0); MEAN CORPUSCULAR HGB CONC 32.8 g/dL (33.0-37.0); MEAN PLATELET VOLUME 8.9 fL (7.2-11.7); MONO # 1.1 K/uL (0.0-0.8); NRBC % 0.1 % (0.0-2.0); RED CELL DISTRIBUTION WIDTH 16.4 % (11.5-14.5); WHITE BLOOD COUNT 9.4 K/uL (4.8-10.8)
[2017-01-16] MEDS: Cilostazol 100 mg Tab UD PO SCH ×2 (07:58→18:32)
[2017-01-16 08:03] LABS: CHLORIDE 105 mmol/L (98-107); SODIUM 144 mmol/L (132-148)
[2017-01-16 08:05] LABS: ALB/GLOB RATIO 0.9 (1.0-2.1); AST/SGOT 15 U/L (14-36); BILIRUBIN,TOTAL 0.3 mg/dL (0.2-1.3); CARBON DIOXIDE 27 mmol/L (22-30); GFR AFRICAN-AMERICAN > 60; TOTAL PROTEIN 7.1 g/dL (6.3-8.3)
[2017-01-16 08:06] LABS: ALKALINE PHOSPHATASE 51 U/L (38-126); ALT/SGPT 28 U/L (9-52); BLOOD UREA NITROGEN 6 mg/dL (7-17); CALCIUM 9.1 mg/dl (8.6-10.4); GLUCOSE,RANDOM 101 mg/dL (65-105)
[2017-01-16] MEDS: Promethazine 6.25 MG/5 ML CUP PO PRN ×2 (09:46→21:38)
[2017-01-16] MEDS: Saccharomyces Boulardi 250 mg Cap PO SCH ×2 (09:46→18:32)
--- NOTE | 2017-01-16 14:00 | CP.PCM.PN ---
Subjective - Date & Time of Evaluation Date of Evaluation: 01/16/17 Time of Evaluation: 13:59 - Subjective Subjective: CHIEF COMPLAINTS TODAY : WHEEZING P ROS. HEENT : N. Resp : No cough, ,pleuritic CP ,or hemoptysis Cardio : No anginal CP, PND, orthopnea, palpitation GI : No abd.pain, n/v ,diarrhea or GI bleeding . [employer] : No headache, vertigo, focal deficit. Musculoskel : No joint swelling , Derm : No rash Psych : Normal affect. Ext : No swelling ,calf pain PE. Pt. is alert awake in no distress. V.S As noted in the chart Head ,ear nose,throat and eyes : Normal. Neck : Supple with normal carotids. Lungs: Clear air entry. CREPTS Heart : S1 & S2 normal with S4. No murmur. Abd : Soft non tender with normal bowel sounds. Neuro : Moves all ext. with no localized deficit. Ext : No edema with intact pulses.Non tender calves Derm : No rashes or decubitus ulcer. LABS/RADIOLOGY: carotid doppler , no significant blockage ASSESSMENT/PLAN : VASCULAR LOWER EXT EVAL , DR. CLAUDIO IV AB CXR AND CT REPORT PENDING Objective - Vital Signs/Intake and Output Vital Signs (last 24 hours): Temp Pulse Resp BP Pulse Ox 97 F L 72 20 135/89 96 01/16/17 07:00 01/16/17 07:00 01/16/17 07:00 01/16/17 07:00 01/16/17 07:00 Intake and Output: 01/16/17 01/16/17 11:59 23:59 Intake Total 670 Balance 670 - Medications Medications: Current Medications Acetaminophen (Tylenol 325mg Tab) 650 mg PO Q6 PRN PRN Reason: Pain, moderate (4-7) Last Admin: 01/12/17 04:24 Dose: 650 mg Albuterol/Ipratropium (Duoneb 3 Mg/0.5 Mg (3 Ml) Ud) 3 ml INH RQ6 [facility] Last Admin: 01/16/17 13:37 Dose: 3 ml Cilostazol (Pletal) 100 mg PO ACBD [facility] Last Admin: 01/16/17 07:58 Dose: 100 mg Clopidogrel Bisulfate (Plavix) 75 mg PO DAILY [facility] Last Admin: 01/16/17 09:46 Dose: 75 mg Famotidine (Pepcid) 20 mg PO BID [facility] Last Admin: 01/16/17 09:45 Dose: 20 mg Gabapentin (Neurontin) 400 mg PO TID [facility] Last Admin: 01/16/17 13:46 Dose: 400 mg Hydralazine HCl (Apresoline) 50 mg PO TID [facility] Last Admin: 01/16/17 13:46 Dose: 50 mg Azithromycin 500 mg/ Sodium (Chloride) 250 mls @ 250 mls/hr IVPB Q24H [facility] Last Admin: 01/16/17 00:12 Dose: 250 mls/hr Vancomycin HCl 1 gm/ Sodium (Chloride) 250 mls @ 166.7 mls/hr IVPB Q24H [facility] Last Admin: 01/16/17 01:18 Dose: 166.7 mls/hr Piperacillin Sod/Tazobactam Sod (Zosyn 2.25 Gm Iv Premix) 2.25 gm in 50 mls @ 100 mls/hr IVPB Q8H [facility] Last Admin: 01/16/17 13:46 Dose: 100 mls/hr Ibuprofen (Motrin Tab) 600 mg PO TID PRN PRN Reason: Pain Last Admin: 01/16/17 00:20 Dose: 600 mg Lisinopril (Zestril) 10 mg PO DAILY [facility] Last Admin: 01/16/17 09:45 Dose: 10 mg Mirtazapine (Remeron) 15 mg PO [facility] Last Admin: 01/15/17 21:36 Dose: 15 mg Promethazine HCl (Phenergan Syrup) 6.25 mg PO TID PRN PRN Reason: Cough Last Admin: 01/16/17 09:46 Dose: 6.25 mg Quetiapine Fumarate (Seroquel) 50 mg PO [facility] Last Admin: 01/15/17 21:36 Dose: 50 mg Rosuvastatin Calcium (Crestor) 20 mg PO [facility] Last Admin: 01/15/17 21:36 Dose: 20 mg Saccharomyces Boulardii (Florastor) 250 mg PO BID [facility] Last Admin: 01/16/17 09:46 Dose: 250 mg - Labs Labs: 01/16/17 07:03 01/16/17 07:03 PT 10.9 SECONDS (9.7-12.2) 01/10/17 21:02 INR 1.0 01/10/17 21:02 APTT 29 SECONDS (21-34) 01/10/17 21:02
--- NOTE | 2017-01-16 14:36 | RAD ---
PROCEDURE: CHEST RADIOGRAPH, 1 VIEW HISTORY: repeat cxray COMPARISON: Comparison is made to 01/10/2017 FINDINGS: LUNGS: Mild pulmonary vascular congestion is again noted and slightly improved since the previous exam. Otherwise no significant interval change PLEURA: No pneumothorax or pleural fluid seen. CARDIOVASCULAR: Normal. OSSEOUS STRUCTURES: No significant abnormalities. VISUALIZED UPPER ABDOMEN: Normal. OTHER FINDINGS: None. IMPRESSION: Mild pulmonary vascular congestion.
--- NOTE | 2017-01-16 22:41 | CP.PCM.PN ---
Subjective - Date & Time of Evaluation Date of Evaluation: 01/16/17 Time of Evaluation: 22:41 - Subjective Subjective: AFEBRILE, STILL WITH PRODUCTIVE COUGH. DENIES CHEST PAIN OR SHORTNESS OF BREATH. CT- CHEST 01/13/17-BILATERAL PATCHY MULTIFOCAL PNEUMONIA WITH SMALL BILATERAL PLEURAL EFFUSIONS. ( SEE FULL REPORT ) - tOLERATING iv ANTIBIOTICS. ROS; 12 POINT REVIEW OF SYSTEMS OBTAINED. sAME ABOVE. RT. LEG PAIN MUCH IMPROVED, PATIENT AMBULATING. Objective - Vital Signs/Intake and Output Vital Signs (last 24 hours): Temp Pulse Resp BP Pulse Ox 98.0 F 104 H 20 153/73 H 97 01/16/17 15:37 01/16/17 16:00 01/16/17 15:37 01/16/17 15:37 01/16/17 15:37 - Medications Medications: Current Medications Acetaminophen (Tylenol 325mg Tab) 650 mg PO Q6 PRN PRN Reason: Pain, moderate (4-7) Last Admin: 01/12/17 04:24 Dose: 650 mg Albuterol/Ipratropium (Duoneb 3 Mg/0.5 Mg (3 Ml) Ud) 3 ml INH RQ6 [facility] Last Admin: 01/16/17 19:10 Dose: 3 ml Cilostazol (Pletal) 100 mg PO ACBD [facility] Last Admin: 01/16/17 18:32 Dose: 100 mg Clopidogrel Bisulfate (Plavix) 75 mg PO DAILY [facility] Last Admin: 01/16/17 09:46 Dose: 75 mg Famotidine (Pepcid) 20 mg PO BID [facility] Last Admin: 01/16/17 18:32 Dose: 20 mg Gabapentin (Neurontin) 400 mg PO TID [facility] Last Admin: 01/16/17 18:32 Dose: 400 mg Hydralazine HCl (Apresoline) 50 mg PO TID [facility] Last Admin: 01/16/17 18:31 Dose: Not Given Azithromycin 500 mg/ Sodium (Chloride) 250 mls @ 250 mls/hr IVPB Q24H [facility] Last Admin: 01/16/17 00:12 Dose: 250 mls/hr Vancomycin HCl 1 gm/ Sodium (Chloride) 250 mls @ 166.7 mls/hr IVPB Q24H [facility] Last Admin: 01/16/17 01:18 Dose: 166.7 mls/hr Piperacillin Sod/Tazobactam Sod (Zosyn 2.25 Gm Iv Premix) 2.25 gm in 50 mls @ 100 mls/hr IVPB Q8H [facility] Last Admin: 01/16/17 21:32 Dose: 100 mls/hr Ibuprofen (Motrin Tab) 600 mg PO TID PRN PRN Reason: Pain Last Admin: 01/16/17 00:20 Dose: 600 mg Lisinopril (Zestril) 10 mg PO DAILY [facility] Last Admin: 01/16/17 09:45 Dose: 10 mg Mirtazapine (Remeron) 15 mg PO HS [facility] Last Admin: 01/16/17 21:32 Dose: 15 mg Promethazine HCl (Phenergan Syrup) 6.25 mg PO TID PRN PRN Reason: Cough Last Admin: 01/16/17 21:38 Dose: 6.25 mg Quetiapine Fumarate (Seroquel) 50 mg PO HS [facility] Last Admin: 01/16/17 21:32 Dose: 50 mg Rosuvastatin Calcium (Crestor) 20 mg PO HS [facility] Last Admin: 01/16/17 21:32 Dose: 20 mg Saccharomyces Boulardii (Florastor) 250 mg PO BID [facility] Last Admin: 01/16/17 18:32 Dose: 250 mg - Labs Labs: 01/16/17 07:03 01/16/17 07:03 PT 10.9 SECONDS (9.7-12.2) 01/10/17 21:02 INR 1.0 01/10/17 21:02 APTT 29 SECONDS (21-34) 01/10/17 21:02 - Constitutional Appears: No Acute Distress - Head Exam Head Exam: NORMAL INSPECTION - Eye Exam Eye Exam: EOMI, PERRL - ENT Exam ENT Exam: Normal Oropharynx - Neck Exam Neck Exam: Normal Inspection - Respiratory Exam Respiratory Exam: Rales, Rhonchi - Cardiovascular Exam Cardiovascular Exam: Tachycardia, +S1, +S2 - GI/Abdominal Exam GI & Abdominal Exam: Soft, Normal Bowel Sounds. absent: Organomegaly - Back Exam Back Exam: absent: CVA tenderness (L), CVA tenderness (R) - Neurological Exam Neurological Exam: Awake, CN II-XII Intact, Normal Gait, Oriented x3, Reflexes Normal - Psychiatric Exam Psychiatric exam: Normal Mood - Skin Skin Exam: Normal Color, Warm Assessment and Plan (1) Severe sepsis Status: Acute (2) Pneumonia Status: Acute (3) Carotid stenosis, symptomatic w/o infarct Status: Acute (4) Acute renal insufficiency Status: Acute (5) Chronic back pain Status: Acute (6) PAD (peripheral artery disease) Status: Acute - Assessment and Plan (Free Text) Assessment: CONTINUE iv zOSYN 2.25 iv PIGGYBACK EVERY 8 HOURLY 01/11/17. CONTINUE iv VANCOMYCIN 1 G EVERY 24 HOURLY TO COVER FOR STAPH AND STREP. . CONTINUE zITHROMAX 500 MG ONCE A DAY DAILY 01/11/17. SPUTUM gRAM STAIN AND CULTURE - P. RN SENT THE SPUTUM TODAY-01/16/17 NEBULIZER THERAPY WHEN NECESSARY EVERY 6 HOURLY. follow-up chest x-ray. CASE DISCUSSED WITH THE STAFF.
[2017-01-17] MEDS: Azithromycin 500 MG in Sodium Chloride 0.9% 250 ML IVPB SCH (01:48)
[2017-01-17] MEDS: Albuterol-Ipratrop 3 mg / 0.5 (3 ml) UD INH SCH ×4 (03:00→19:15)
[2017-01-17] MEDS: Piperacill/Tazo 2.25gm in Dex 2.25 GM/50 ML BAG IVPB SCH ×3 (06:39→21:40)
[2017-01-17] MEDS: Cilostazol 100 mg Tab UD PO SCH ×2 (06:40→17:52)
[2017-01-17] MEDS: Saccharomyces Boulardi 250 mg Cap PO SCH ×2 (09:39→17:52)
--- NOTE | 2017-01-17 14:51 | CP.PCM.PN ---
Subjective - Date & Time of Evaluation Date of Evaluation: 01/17/17 Time of Evaluation: 14:50 - Subjective Subjective: CHIEF COMPLAINTS TODAY : WHEEZING P ROS. HEENT : N. Resp : No cough, ,pleuritic CP ,or hemoptysis Cardio : No anginal CP, PND, orthopnea, palpitation GI : No abd.pain, n/v ,diarrhea or GI bleeding . [employer] : No headache, vertigo, focal deficit. Musculoskel : No joint swelling , Derm : No rash Psych : Normal affect. Ext : No swelling ,calf pain PE. Pt. is alert awake in no distress. V.S As noted in the chart Head ,ear nose,throat and eyes : Normal. Neck : Supple with normal carotids. Lungs: Clear air entry. CREPTS Heart : S1 & S2 normal with S4. No murmur. Abd : Soft non tender with normal bowel sounds. Neuro : Moves all ext. with no localized deficit. Ext : No edema with intact pulses.Non tender calves Derm : No rashes or decubitus ulcer. LABS/RADIOLOGY: carotid doppler , no significant blockage ASSESSMENT/PLAN : IV AB Objective - Vital Signs/Intake and Output Vital Signs (last 24 hours): Temp Pulse Resp BP Pulse Ox 98.1 F 95 H 20 122/69 96 01/17/17 08:32 01/17/17 08:32 01/17/17 08:32 01/17/17 08:32 01/17/17 08:32 Intake and Output: 01/17/17 01/17/17 11:59 23:59 Intake Total 650 Balance 650 - Medications Medications: Current Medications Acetaminophen (Tylenol 325mg Tab) 650 mg PO Q6 PRN PRN Reason: Pain, moderate (4-7) Last Admin: 01/12/17 04:24 Dose: 650 mg Albuterol/Ipratropium (Duoneb 3 Mg/0.5 Mg (3 Ml) Ud) 3 ml INH RQ6 [facility] Last Admin: 01/17/17 13:45 Dose: 3 ml Cilostazol (Pletal) 100 mg PO ACBD [facility] Last Admin: 01/17/17 06:40 Dose: 100 mg Clopidogrel Bisulfate (Plavix) 75 mg PO DAILY [facility] Last Admin: 01/17/17 09:35 Dose: 75 mg Famotidine (Pepcid) 20 mg PO BID [facility] Last Admin: 01/17/17 09:34 Dose: 20 mg Gabapentin (Neurontin) 400 mg PO TID [facility] Last Admin: 01/17/17 13:19 Dose: 400 mg Hydralazine HCl (Apresoline) 50 mg PO TID [facility] Last Admin: 01/17/17 13:18 Dose: 50 mg Azithromycin 500 mg/ Sodium (Chloride) 250 mls @ 250 mls/hr IVPB Q24H [facility] Last Admin: 01/17/17 01:48 Dose: 250 mls/hr Vancomycin HCl 1 gm/ Sodium (Chloride) 250 mls @ 166.7 mls/hr IVPB Q24H [facility] Last Admin: 01/16/17 23:57 Dose: 166.7 mls/hr Piperacillin Sod/Tazobactam Sod (Zosyn 2.25 Gm Iv Premix) 2.25 gm in 50 mls @ 100 mls/hr IVPB Q8H [facility] Last Admin: 01/17/17 13:19 Dose: 100 mls/hr Ibuprofen (Motrin Tab) 600 mg PO TID PRN PRN Reason: Pain Last Admin: 01/17/17 09:35 Dose: 600 mg Lisinopril (Zestril) 10 mg PO DAILY [facility] Last Admin: 01/17/17 09:39 Dose: 10 mg Mirtazapine (Remeron) 15 mg PO [facility] Last Admin: 01/16/17 21:32 Dose: 15 mg Promethazine HCl (Phenergan Syrup) 6.25 mg PO TID PRN PRN Reason: Cough Last Admin: 01/16/17 21:38 Dose: 6.25 mg Quetiapine Fumarate (Seroquel) 50 mg PO [facility] Last Admin: 01/16/17 21:32 Dose: 50 mg Rosuvastatin Calcium (Crestor) 20 mg PO [facility] Last Admin: 01/16/17 21:32 Dose: 20 mg Saccharomyces Boulardii (Florastor) 250 mg PO BID [facility] Last Admin: 01/17/17 09:39 Dose: 250 mg - Labs Labs: 01/16/17 07:03 01/16/17 07:03 PT 10.9 SECONDS (9.7-12.2) 01/10/17 21:02 INR 1.0 01/10/17 21:02 APTT 29 SECONDS (21-34) 01/10/17 21:02
[2017-01-17] MEDS: Promethazine 6.25 MG/5 ML CUP PO PRN (17:52)
[2017-01-18] MEDS: Albuterol-Ipratrop 3 mg / 0.5 (3 ml) UD INH SCH ×3 (01:08→13:00)
[2017-01-18] MEDS: Azithromycin 500 MG in Sodium Chloride 0.9% 250 ML IVPB SCH (01:22)
[2017-01-18] MEDS: Promethazine 6.25 MG/5 ML CUP PO PRN (02:29)
[2017-01-18] MEDS: Cilostazol 100 mg Tab UD PO SCH (06:32)
[2017-01-18] MEDS: Piperacill/Tazo 2.25gm in Dex 2.25 GM/50 ML BAG IVPB SCH (06:33)
[2017-01-18 09:46] VITALS: BP 128/82
[2017-01-18] MEDS: Saccharomyces Boulardi 250 mg Cap PO SCH (09:47)
--- NOTE | 2017-01-18 10:55 | CT ---
CT chest with IV contrast Indication: pneumonia r/o underlying mass/nodules Technique: Contiguous axial images were obtained through the chest with intravenous contrast enhancement. Sagittal and coronal reconstructions were generated and reviewed. This CT exam was performed using 1 or more of the falling dose reduction techniques: Automated exposure control, adjustment of the MAA and/or kV according to patient size, and/or use of iterative reconstruction technique. IV Contrast: 100 mL Omnipaque 350 Radiation dose (DLP): 492.11 MGy-cm. Comparison: Chest xray performed 01/10/17 Findings: Visualized portions of the inferior thyroid gland 8 mm left lower pole nodule, partially imaged. The mediastinal and hilar vascular structures appear within normal limits. The heart appears within normal limits of size. Emphysematous changes. Small bulla bilateral upper lobes. Patchy and consistent with pneumonia involving the left upper lobe, lingula, left lower lobe, and to a lesser extent right upper, middle, and lower lobes. Small bilateral pleural effusions. No pneumothorax. Limited visualization of the upper abdomen reveals hepatic steatosis. 2.6 x 2.6 cm right adrenal gland hypodense mass measures approximately 35 HU, indeterminate. Degenerative changes of the spine. Mild kyphosis. Impression: Patchy hazy bilateral pulmonary opacities appear consistent with multifocal pneumonia. Recommend follow-up to complete resolution. Small bilateral pleural effusions. Emphysematous changes. Partially imaged 8 mm left lower pole thyroid gland hypodense nodule. Indeterminate right adrenal gland hypodense mass. Dedicated cross-sectional imaging may be considered for further characterization. Hepatic steatosis. MTDD
--- NOTE | 2017-01-18 11:41 | CP.PCM.PN ---
Subjective - Date & Time of Evaluation Date of Evaluation: 01/18/17 Time of Evaluation: 11:39 - Subjective Subjective: PT FOR D/C HOME TODAY PER DR. HOYOS. RX GIVEN TO CONTINUE REMERON HS, LEVAQUIN QD X7 DAYS AND FLORASTOR. RX ALSO GIVEN FOR BP CUFF (PT'S REQUEST). PT INSTRUCTED TO CONTINUE HOLDING DEPAKOTE AND CYMBALTA UNTIL SEEN BY HER PSYCH MD OR DR. HOYOS NEXT WEEK. DISCUSSED HOME MED LIST AT LENGTH WITH THE PT. NO FURTHER ORDERS. Objective - Vital Signs/Intake and Output Vital Signs (last 24 hours): Temp Pulse Resp BP Pulse Ox 97.9 F 94 H 17 128/82 98 01/18/17 07:20 01/18/17 09:46 01/18/17 07:20 01/18/17 09:46 01/18/17 07:20 Intake and Output: 01/18/17 01/18/17 06:59 18:59 Intake Total 700 Balance 700 - Medications Medications: Current Medications Acetaminophen (Tylenol 325mg Tab) 650 mg PO Q6 PRN PRN Reason: Pain, moderate (4-7) Last Admin: 01/12/17 04:24 Dose: 650 mg Albuterol/Ipratropium (Duoneb 3 Mg/0.5 Mg (3 Ml) Ud) 3 ml INH RQ6 [facility] Last Admin: 01/18/17 07:47 Dose: Not Given Cilostazol (Pletal) 100 mg PO ACBD [facility] Last Admin: 01/18/17 06:32 Dose: 100 mg Clopidogrel Bisulfate (Plavix) 75 mg PO DAILY [facility] Last Admin: 01/18/17 09:47 Dose: 75 mg Famotidine (Pepcid) 20 mg PO BID [facility] Last Admin: 01/18/17 09:47 Dose: 20 mg Gabapentin (Neurontin) 400 mg PO TID [facility] Last Admin: 01/18/17 09:47 Dose: 400 mg Hydralazine HCl (Apresoline) 50 mg PO TID [facility] Last Admin: 01/18/17 09:47 Dose: 50 mg Azithromycin 500 mg/ Sodium (Chloride) 250 mls @ 250 mls/hr IVPB Q24H [facility] Last Admin: 01/18/17 01:22 Dose: 250 mls/hr Vancomycin HCl 1 gm/ Sodium (Chloride) 250 mls @ 166.7 mls/hr IVPB Q24H [facility] Last Admin: 01/17/17 23:54 Dose: 166.7 mls/hr Piperacillin Sod/Tazobactam Sod (Zosyn 2.25 Gm Iv Premix) 2.25 gm in 50 mls @ 100 mls/hr IVPB Q8H [facility] Last Admin: 01/18/17 06:33 Dose: 100 mls/hr Ibuprofen (Motrin Tab) 600 mg PO TID PRN PRN Reason: Pain Last Admin: 01/18/17 02:29 Dose: 600 mg Lisinopril (Zestril) 10 mg PO DAILY [facility] Last Admin: 01/18/17 09:47 Dose: 10 mg Mirtazapine (Remeron) 15 mg PO HS [facility] Last Admin: 01/17/17 21:41 Dose: 15 mg Promethazine HCl (Phenergan Syrup) 6.25 mg PO TID PRN PRN Reason: Cough Last Admin: 01/18/17 02:29 Dose: 6.25 mg Quetiapine Fumarate (Seroquel) 50 mg PO HS [facility] Last Admin: 01/17/17 21:41 Dose: 50 mg Rosuvastatin Calcium (Crestor) 20 mg PO HS [facility] Last Admin: 01/17/17 21:41 Dose: 20 mg Saccharomyces Boulardii (Florastor) 250 mg PO BID [facility] Last Admin: 01/18/17 09:47 Dose: 250 mg - Labs Labs: 01/16/17 07:03 01/16/17 07:03 PT 10.9 SECONDS (9.7-12.2) 01/10/17 21:02 INR 1.0 01/10/17 21:02 APTT 29 SECONDS (21-34) 01/10/17 21:02
--- NOTE | 2017-01-18 13:13 | CP.PCM.DIS ---
Provider - Provider Date of Admission: 01/10/17 23:45 Attending physician: Frances Broussard MD Time Spent in preparation of Discharge (in minutes): 35 Hospital Course - Lab Results Lab Results: Micro Results 01/16/17 14:26 Sputum Gram Stain - Final 01/16/17 14:26 Sputum Sputum Culture - Final Yeast Species 01/10/17 00:00 Blood Blood Culture - Final NO GROWTH AFTER 5 DAYS 01/10/17 00:00 Blood Gram Stain - Final TEST NOT PERFORMED 01/10/17 23:45 Blood Blood Culture - Final NO GROWTH AFTER 5 DAYS 01/10/17 23:45 Blood Gram Stain - Final TEST NOT PERFORMED 01/12/17 13:39 Nose MRSA Culture - Final MRSA NOT DETECTED 01/11/17 08:40 Nose MRSA Culture (Admit) - Final MRSA NOT DETECTED 01/10/17 08:40 Urine,Catheterized Urine Culture - Final No Growth (<1,000 CFU/ML) Most Recent Lab Values WBC 9.4 K/uL (4.8-10.8) 01/16/17 07:03 RBC 3.63 Mil/uL (3.80-5.20) L 01/16/17 07:03 Hgb 10.8 g/dL (11.0-16.0) L 01/16/17 07:03 Hct 33.0 % (34.0-47.0) L 01/16/17 07:03 MCV 90.9 fL (81.0-99.0) 01/16/17 07:03 MCH 29.8 pg (27.0-31.0) 01/16/17 07:03 MCHC 32.8 g/dL (33.0-37.0) L 01/16/17 07:03 RDW 16.4 % (11.5-14.5) H 01/16/17 07:03 Plt Count 382 K/uL (130-400) D 01/16/17 07:03 MPV 8.9 fL (7.2-11.7) 01/16/17 07:03 Neut % (Auto) 53.6 % (50.0-75.0) 01/16/17 07:03 Lymph % (Auto) 29.4 % (20.0-40.0) 01/16/17 07:03 Evangeline % (Auto) 12.0 % (0.0-10.0) H 01/16/17 07:03 Eos % (Auto) 3.9 % (0.0-4.0) 01/16/17 07:03 Baso % (Auto) 1.1 % (0.0-2.0) 01/16/17 07:03 Neut # 5.0 K/uL (1.8-7.0) 01/16/17 07:03 Lymph # 2.8 K/uL (1.0-4.3) 01/16/17 07:03 Evangeline # 1.1 K/uL (0.0-0.8) H 01/16/17 07:03 Eos # 0.4 K/uL (0.0-0.7) 01/16/17 07:03 Baso # 0.1 K/uL (0.0-0.2) 01/16/17 07:03 ESR 48 mm/hr (0-20) H 01/12/17 05:51 PT 10.9 SECONDS (9.7-12.2) 01/10/17 21:02 INR 1.0 01/10/17 21:02 APTT 29 SECONDS (21-34) 01/10/17 21:02 Sodium 144 mmol/L (132-148) 01/16/17 07:03 Potassium 4.0 mmol/L (3.6-5.2) 01/16/17 07:03 Chloride 105 mmol/L (98-107) 01/16/17 07:03 Carbon Dioxide 27 mmol/L (22-30) 01/16/17 07:03 Anion Gap 16 (10-20) 01/16/17 07:03 BUN 6 mg/dL (7-17) L 01/16/17 07:03 Creatinine 0.7 mg/dL (0.7-1.2) 01/16/17 07:03 Est GFR ( Amer) > 60 01/16/17 07:03 Est GFR (Non-Af Amer) > 60 01/16/17 07:03 Random Glucose 101 mg/dL (65-105) 01/16/17 07:03 Calcium 9.1 mg/dl (8.6-10.4) 01/16/17 07:03 Phosphorus 4.5 mg/dL (2.5-4.5) 01/14/17 06:21 Magnesium 1.8 mg/dL (1.6-2.3) 01/14/17 06:21 Total Bilirubin 0.3 mg/dL (0.2-1.3) 01/16/17 07:03 AST 15 U/L (14-36) 01/16/17 07:03 ALT 28 U/L (9-52) 01/16/17 07:03 Alkaline Phosphatase 51 U/L (38-126) 01/16/17 07:03 Troponin I 0.0190 ng/mL (0.00-0.120) 01/10/17 21:02 C-React Prot High Sens > 15.00 mg/L (1.00-3.00) H 01/12/17 05:51 NT-Pro-B Natriuret Pep 292 pg/mL (0-900) 01/10/17 21:02 Total Protein 7.1 g/dL (6.3-8.3) 01/16/17 07:03 Albumin 3.4 g/dL (3.5-5.0) L 01/16/17 07:03 Globulin 3.7 gm/dL (2.2-3.9) 01/16/17 07:03 Albumin/Globulin Ratio 0.9 (1.0-2.1) L 01/16/17 07:03 Urine Color Anu (YELLOW) 01/10/17 10:08 Urine Clarity Hazy (Clear) 01/10/17 10:08 Urine pH 5.0 (5.0-8.0) 01/10/17 10:08 Ur Specific [place] 1.017 (1.003-1.030) 01/10/17 10:08 Urine Protein 1+ mg/dL (NEGATIVE) H 01/10/17 10:08 Urine Glucose (UA) Normal mg/dL (Normal) 01/10/17 10:08 Urine Ketones Negative mg/dL (NEGATIVE) 01/10/17 10:08 Urine Blood Negative (NEGATIVE) 01/10/17 10:08 Urine Nitrate Negative (NEGATIVE) 01/10/17 10:08 Urine Bilirubin Negative (NEGATIVE) 01/10/17 10:08 Urine Urobilinogen 2.0 mg/dL (0.2-1.0) H 01/10/17 10:08 Ur Leukocyte Esterase 2+ Paz/uL (Negative) H 01/10/17 10:08 Urine WBC (Auto) 35 /hpf (0-5) H 01/10/17 10:08 Urine RBC (Auto) 4 /hpf (0-3) H 01/10/17 10:08 Ur Squamous Epith Cells 2 /hpf (0-5) 01/10/17 10:08 Urine Bacteria Few (<OCC) H 01/10/17 10:08 Urine Opiates Screen Negative (NEGATIVE) 01/10/17 10:08 Urine Methadone Screen Negative (NEGATIVE) 01/10/17 10:08 Ur Barbiturates Screen Negative (NEGATIVE) 01/10/17 10:08 Ur Phencyclidine Scrn Negative (NEGATIVE) 01/10/17 10:08 Ur Amphetamines Screen Negative (NEGATIVE) 01/10/17 10:08 U Benzodiazepines Scrn Positive (NEGATIVE) 01/10/17 10:08 U Oth Cocaine Metabols Negative (NEGATIVE) 01/10/17 10:08 U Cannabinoids Screen Negative (NEGATIVE) 01/10/17 10:08 Alcohol, Quantitative < 10 mg/dl (0-10) 01/10/17 21:02 Influenza Typ A,B (EIA) Negative for flu a/b (NEGATIVE) 01/11/17 23:04 Influenza Type A Ab 1:16 titer (<1:8) H 01/12/17 05:51 Influenza Type B Ab <1:8 titer (<1:8) 01/12/17 05:51 H.influenzae Type B Ag Not required (NEGATIVE) 01/13/17 Unknown Ur L.pneumophila Ag Negative (NEGATIVE) 01/11/17 12:30 Mycoplasma pneumon IgG 1.53 (<=0.90) H 01/13/17 13:53 Mycoplasma pneumon IgM 223 U/mL (<770) 01/13/17 13:53 N.meningitidis ACY/W135 Not required (NEGATIVE) 01/13/17 Unknown N.meningi B/E.coli K1 Ag Not required (NEGATIVE) 01/13/17 Unknown Group B Strep Antigen Not required (NEGATIVE) 01/13/17 Unknown S. pneumoniae Antigen Negative (NEGATIVE) 01/13/17 Unknown - Hospital Course Hospital Course: ADMITTED WITH NON SPECIFIC COMPLAINTS APPERNETLY PT HAD LOST APPETITE FOR FEW DAYS AND HAD AN AEPISODE OF HALLUCINATION PRIOR TO ADMISSION PT WAS HYPOTENSIVE WITH GREG PNEUMONIA PAST HIST. CAD/HTN/LEFT CAROTID STENOSIS LEFT ICA STENT IN [place] /CVA / SEPSIS /R. GROIN HEMATOMA ID/VASCULAR EVALUATED PT PT. IMPROVED ON IV AB AND CT CHEST SHOWED CULTURE NEG PNEUMONIA VASCULAR : MEDICAL THERAPY CAROTID : NO SIGNIFICANT DISEASE REC : PO LEVAQUIN 500 OD 7 D COTN [facility] STRONGL[facility] ADVISED TO STOP SMOKING AND SEEK HELP OUT PT FOR SMOKING CESSATION OPTIONS Discharge Exam - Head Exam Head Exam: NORMAL INSPECTION Discharge Plan - Discharge Medications Prescriptions: Fluticasone/Salmeterol 250/50 [Advair Diskus] 1 puff IH Q12 #1 puff Blood Pressure Test Kit-Medium [Blood Pressure Cuff Monitor] 1 each MC DAILY #1 kit Albuterol/Ipratropium [Combivent Respimat] 1 puff IH Q12 #1 inhaler Saccharomyces Boulardi [Florastor] 250 mg PO BID #14 cap levoFLOXacin [Levaquin] 500 mg PO DAILY #7 tab Acetaminophen/Oxycodone Hydr [Percocet 10/325 mg Tab] 1 tab PO Q6H 1 Days tab Mirtazapine [Remeron] 15 mg PO HS #30 tab Albuterol HFA [Ventolin HFA 90 mcg/actuation (8 g)] 1 puff IH QID PRN #1 inhaler PRN Reason: Wheezing - Follow Up Plan Condition: FAIR Disposition: HOME/ ROUTINE Instructions: Mirtazapine (By mouth), Levofloxacin (By mouth), Probiotic (By mouth), Dehydration (DC), Acute Kidney Injury (DC), Heart Healthy Diet (DC), Sepsis (GEN) Additional Instructions: FOLLOW UP WITH DR. BROUSSARD'Vane IN 1 WEEK IN THE OFFICE---CALL TO MAKE YOUR APPT TIME. FOLLOW UP WITH DR. CLAUDIO IN 2-3 WEEKS IN THE OFFICE--CALL TO MAKE APPT TIME. CONTINUE ALL MEDICATIONS ACCORDING TO YOUR DISCHARGE PAPERS AND DISCUSSED. CONTINUE LEVAQUIN (ANTIBIOTIC) 500 MG BY MOUTH ONCE A DAY FOR 1 WEEK---ALSO CONTINUE FLORASTOR (PROBIOTIC) TWICE A DAY FOR 1 WEEK. CONTINUE TO HOLD YOUR DEPAKOTE AND CYMBALTA UNTIL YOU SEE DR. BROUSSARD OR YOUR PSYCHIATRIST. FOLLOW UP WITH YOUR PAIN MANAGEMENT DOCTOR AND PSYCHIATRIST USUALLY SCHEDULED. FOR FURTHER QUESTIONS OR CONCERNS, CONTACT DR. BROUSSARD'S OFFICE. Referrals: Lucho James MD [Staff Provider] - Frances Broussard MD [Staff Provider] - Rey Claudio MD [Staff Provider] -
[2017-01-18 13:27] VITALS: PULSE 81; RESP 18; TEMP 98.2; O2SAT 96
== END 2017-01-18 13:50 | disposition home or self-care (01) | DRG 871 ==
LOC: C.ER 19:49 → C.9E 23:45 → C.9I 01-11 00:41 → C.6T 01-12 14:30
PROVIDERS: ADMIT Internal Medicine Cardiovascular Disease; ATTEND Internal Medicine Cardiovascular Disease
DX: A41.9 Sepsis, unspecified organism (principal); J18.9 Pneumonia, unspecified organism; N17.9 Acute kidney failure, unspecified; N39.0 Urinary tract infection, site not specified; J44.0 Chronic obstructive pulmonary disease with (acute) lower respiratory infection; R44.3 Hallucinations, unspecified; R65.20 Severe sepsis without septic shock; E86.0 Dehydration; I10 Essential (primary) hypertension; E03.9 Hypothyroidism, unspecified; E78.00 Pure hypercholesterolemia, unspecified; E78.5 Hyperlipidemia, unspecified; F17.210 Nicotine dependence, cigarettes, uncomplicated; G89.29 Other chronic pain; I65.21 Occlusion and stenosis of right carotid artery; I25.10 Atherosclerotic heart disease of native coronary artery without angina pectoris; I73.9 Peripheral vascular disease, unspecified; M81.0 Age-related osteoporosis without current pathological fracture; N28.9 Disorder of kidney and ureter, unspecified; Z86.73 Personal history of transient ischemic attack (TIA), and cerebral infarction without residual deficits; Z95.5 Presence of coronary angioplasty implant and graft; F32.9 Major depressive disorder, single episode, unspecified

== ENCOUNTER 2017-10-19 12:53 | Emergency (ER) | payer MEDICARE ==
[2017-10-19 12:53] VITALS: BMI 27.4
[2017-10-19] MEDS ORDERED: Oxycodone/Acetaminophen 5/325 mg Tab PO STA (13:12)
--- NOTE | 2017-10-19 13:12 | C.PDOC ---
History Of Present Illness 62 y/o female presents to the ER complaining of worsening lower back pain over the past 1 year. Patient states that she has back pain for the past 3 years. Patient reports that she sees animated cartoons painter. She takes Percocet 10 mg but she ran out of the medication 4-5 days ago. She has an appointment with her animated cartoons painter next week. Time Seen by Provider: 10/19/17 13:01 History Per: Patient History/Exam Limitations: no limitations Onset/Duration Of Symptoms: Days Current Symptoms Are (Timing): Still Present Severity: Moderate Past Medical History Reviewed: Historical Data, Nursing Documentation, Vital Signs Vital Signs: Last Vital Signs Temp 98.3 F 10/19/17 13:12 Pulse 94 H 10/19/17 13:12 Resp 16 10/19/17 13:12 BP 143/86 10/19/17 13:12 Pulse Ox 95 10/19/17 13:12 - Medical History PMH: Anxiety, Arthritis, Asthma, Back Problems, CAD, COPD, Depression, HTN, Hypercholesterolemia, Hypothyroidism, Osteoporosis, TIA Surgical History: Carotid Endarterectomy, Coronary Stent - [facility] Procedures ANGIOPLASTY OF OTHER NON-CORONARY VESSEL(S) (02/21/14) CONTRAST AORTOGRAM (02/21/14) CONTRAST ARTERIOGRAM-LEG (02/21/14) FLUOROSCOPY OF L LOW EXTREM ART USING L OSM CONTRAST (01/11/15) FLUOROSCOPY OF R LOW EXTREM ART USING L OSM CONTRAST (01/11/15) INJECT/INFUSE NEC (12/24/13) INSEJ [id number] PERIPHERAL NON-CORONARY VES STENT(S) (02/21/14) INSERTION OF ONE VASCULAR STENT (02/21/14) INTRODUCTION OF SERUM/TOX/VACCINE INTO MUSCLE, PERC APPROACH (01/06/15) PROCEDURE ON SINGLE VESSEL (02/21/14) Family History: States: No Known Family Hx - Social History Hx Tobacco Use: Yes Hx Alcohol Use: No Hx Substance Use: No - Immunization History Hx Tetanus Toxoid Vaccination: No Hx Influenza Vaccination: Yes Hx Pneumococcal Vaccination: No Review Of Systems Except As Marked, All Systems Reviewed And Found Negative. Musculoskeletal: Positive for: Back Pain Physical Exam - Physical Exam Appears: Other (mild distress) Skin: Normal Color, Warm, Dry Head: Atraumatic, Normacephalic Eye(s): bilateral: Normal Inspection Back: No Vertebral Tenderness, No Paraspinal Tenderness, Other (limited full ROM ) Neurological/Psych: Oriented x3, Normal Speech Progress - Data Reviewed Data Reviewed: Old records Medical Decision Making Medical Decision Making: Patient advised about the pain management medication policy at [facility]. Patient has been discharged with copy of policy and instructed to follow up with animated cartoons painter. Disposition Counseled Patient/Family Regarding: Diagnosis, Need For Followup - Disposition Referrals: YOUR,PAIN MANAGEMENT [Other] Disposition: HOME/ ROUTINE Disposition Time: 13:11 Condition: IMPROVED Additional Instructions: YOU HAVE BEEN ADVISED AND GIVEN A COPY OF THE ER DEPT PAIN MEDICATION POLICY. FOLLOW UP WITH YOUR PAIN MANAGEMENT DOCTOR JAYCEE. Instructions: Chronic Pain (DC) - Clinical Impression Clinical Impression: Chronic back pain - Scribe Statement The provider has reviewed the documentation as recorded by the Irena Garnica Provider Attestation: All medical record entries made by the Irena were at my direction and personally dictated by me. I have reviewed the chart and agree that the record accurately reflects my personal performance of the history, physical exam, medical decision making, and the department course for this patient. I have also personally directed, reviewed, and agree with the discharge instructions and disposition.
[2017-10-19 13:14] VITALS: BP 143/86; PULSE 94; RESP 16; TEMP 98.3; O2SAT 95
[2017-10-19] MEDS ORDERED: Oxycodone/Acetaminophen 5/325 mg Tab ONE (13:40)
== END 2017-10-19 13:54 | disposition home or self-care (01) ==
LOC: C.ER 12:53
DX: G89.29 Other chronic pain (principal); M54.5 Low back pain; E78.00 Pure hypercholesterolemia, unspecified; E03.9 Hypothyroidism, unspecified; I10 Essential (primary) hypertension; I25.10 Atherosclerotic heart disease of native coronary artery without angina pectoris; J44.9 Chronic obstructive pulmonary disease, unspecified; Z72.0 Tobacco use

== ENCOUNTER 2018-08-08 13:53 | Emergency (ER) | payer MEDICAID, MEDICARE ==
--- NOTE | 2018-08-08 13:59 | C.PDOC ---
History Of Present Illness 62 yo female come in for scheduled suture removal from scalp after laceration was repaired at [facility] on 07/24/18. AT present time, pt denies any active complaints, denies fever, chills, wound pain, swelling or discharge, denies any other active complaints. Time Seen by Provider: 08/08/18 13:56 History Per: Patient Past Medical History Reviewed: Historical Data, Nursing Documentation, Vital Signs - Medical History PMH: Anxiety, Arthritis, Asthma, Back Problems, CAD, COPD, Depression, HTN, Hypercholesterolemia, Hypothyroidism, Osteoporosis, TIA Surgical History: Carotid Endarterectomy, Coronary Stent - [facility] Procedures ANGIOPLASTY OF OTHER NON-CORONARY VESSEL(S) (02/21/14) CONTRAST AORTOGRAM (02/21/14) CONTRAST ARTERIOGRAM-LEG (02/21/14) FLUOROSCOPY OF L LOW EXTREM ART USING L OSM CONTRAST (01/11/15) FLUOROSCOPY OF R LOW EXTREM ART USING L OSM CONTRAST (01/11/15) INJECT/INFUSE NEC (12/24/13) INSEJ [id number] PERIPHERAL NON-CORONARY VES STENT(S) (02/21/14) INSERTION OF ONE VASCULAR STENT (02/21/14) INTRODUCTION OF SERUM/TOX/VACCINE INTO MUSCLE, PERC APPROACH (01/06/15) PROCEDURE ON SINGLE VESSEL (02/21/14) Family History: States: Unknown Family Hx - Social History Hx Tobacco Use: Yes Hx Alcohol Use: No Hx Substance Use: No - Immunization History Hx Tetanus Toxoid Vaccination: Yes Hx Influenza Vaccination: Yes Hx Pneumococcal Vaccination: No Review Of Systems Except As Marked, All Systems Reviewed And Found Negative. Constitutional: Negative for: Fever, Chills Skin: Positive for: Lesions Neurological: Negative for: Weakness, Numbness, Altered Mental Status, Headache, Dizziness Physical Exam - Physical Exam Appears: Well, Non-toxic, No Acute Distress Skin: Normal Color, Warm Head: Normacephalic, Laceration (well healed laceration left parietal scalp closed with sutures#3. no edema, no erythema, no wound discharge) Extremity: Normal ROM Neurological/Psych: Oriented x3, Normal Speech ED Course And Treatment Progress Note: Wound cleaned, sutures#3 removed wihout difficulty. Pt advised on wound care. ref. to F/u with PMD as need Disposition Counseled Patient/Family Regarding: Diagnosis, Need For Followup - Disposition Referrals: Oz Guajardo MD [Staff Provider] - Disposition: HOME/ ROUTINE Disposition Time: 14:10 Condition: STABLE Additional Instructions: Keep wound clean Follow up with PMD in 2-3 days for re-evaluation return if any new changes Instructions: Stitches Removal Forms: [employer] [facility] (Tristanian) - Clinical Impression Clinical Impression: Removal of suture
[2018-08-08 14:02] VITALS: BP 130/82; RESP 18; TEMP 98; O2SAT 97; BMI 26.9
[2018-08-08 14:06] VITALS: PULSE 100
== END 2018-08-08 14:27 | disposition home or self-care (01) ==
LOC: C.ER 13:53
DX: Z48.02 Encounter for removal of sutures (principal)